=== PATIENT | male | born 1950 | race Caucasian/White ===

== ENCOUNTER 2017-07-03 11:29 | Inpatient (IN) | payer OTHER ==
--- NOTE | 2017-07-03 11:57 | ED ---
General Adult HPI - General Chief complaint: Recheck/Abnormal Lab/Rx Stated complaint: Kidney problems Time Seen by Provider: 07/03/17 11:40 Source: patient, RN notes reviewed, old records reviewed Mode of arrival: ambulatory Limitations: no limitations - History of Present Illness Initial comments: Chief complaint and history of present illness this is a 66-year-old male who had lab work done in his doctor's office yesterday he was called today and told to come the emergency room because of changes in his kidney function. Patient states that he was in hospital 1 month ago first time diagnosis for CHF and A. fib. He is on medications for that. The past 2 days he's been taking vitamin D and he states he is actually feeling better. Review of his kidney function from one month ago showed his BUN at that time to be 33 creatinine 1.23 GFR 59. We're trying to obtain lab results done at the doctor's office. lab results are obtained from the doctor's office and it showed BUN of 48 creatinine 3.0 and GFR 21. these are significant changes compared to one month ago. - Related Data Previous Rx's Medication Instructions Recorded Amiodarone [Cordarone] 400 mg PO BID #120 tab 06/06/17 Apixaban [Eliquis] 5 mg PO BID #60 tab 06/06/17 Digoxin [Lanoxin] 125 mcg PO DAILY #30 tab 06/06/17 Furosemide [Lasix] 40 mg PO BID@0900,1600 #60 tab 06/06/17 Lisinopril [Zestril] 2.5 mg PO DAILY #30 tab 06/06/17 Melatonin 3 mg PO HS PRN tablet 06/06/17 Metoprolol Tartrate [Lopressor] 25 mg PO TID #90 tab 06/06/17 Spironolactone [Aldactone] 25 mg PO DAILY #30 tab 06/06/17 Allergies Allergy/AdvReac Type Severity Reaction Status Date / Time No Known Allergies Allergy Verified 07/03/17 12:12 Review of Systems ROS Statement: Those systems with pertinent positive or pertinent negative responses have been documented in the HPI. review of systems no headache or visual acuity changes states he generally feels weak for the past month after being diagnosed with CHF and A. fib. Denying any chest pain no palpitations no significant shortness of breath denies any peripheral edema. No neuro deficits. No abdominal pain no nausea no vomiting no diarrhea. All systems were reviewed. Past medical problems recently diagnosed with A. fib and CHF. With appropriate medications to treat thatNow being taken. Also diagnosis of having a low vitamin D, has taken vitamin D for the past 2 days and states he is actually feeling better. Patient denies any surgical history. Family history significant for father with colon cancer. He states she's never had colonoscopy but he and his physician are planning to have one. Patient's mother had sinus cancer. Patient denies ALLERGIES denies smoking denies drinking. Denies being exposed to any harmful chemicals at work. ROS Other: All systems not noted in ROS Statement are negative. Past Medical History Past Medical History: Atrial Fibrillation, Heart Failure History of Any Multi-Drug Resistant Organisms: None Reported Past Surgical History: No Surgical Hx Reported Past Anesthesia/Blood Transfusion Reactions: No Reported Reaction Past Psychological History: No Psychological Hx Reported Smoking Status: Never smoker Past Alcohol Use History: None Reported Past Drug Use History: None Reported - Past Family History Father Family Medical History: Unable to Obtain Mother Family Medical History: Unable to Obtain General Exam - General Exam Comments Initial Comments: General: The patient is awake and alert, told to come in emergency room because of changes in his kidney function. No new complaints, generally fatigued for the past month after being diagnosed with A. fib and CHF.in no distress, and does not appear acutely ill. vital signs shows temperature 97.8 pulse 70 over respiratory rate 20 pulse ox 99% room air blood pressure 107/52 Eye: Pupils are equal, round and reactive to light, extra-ocular movements are intact ; there is normal conjunctiva bilaterally. No signs of icterus. Ears, nose, mouth and throat: There are moist mucous membranes and no oral lesions. Neck: The neck is supple, there is no tenderness , 9 tear cervical lymphadenopathy, thyroid not enlarged. Cardiovascular: There is a regular rate and rhythm. No murmur, rub or gallop is appreciated. Respiratory: Lungs are clear to auscultation, respirations are non-labored, breath sounds are equal. No wheezes, stridor, rales, or rhonchi. Gastrointestinal: Soft, non-distended, non-tender abdomen without masses or organomegaly noted. There is no rebound or guarding present. No CVA tenderness. Bowel sounds are unremarkable. Back: There is no tenderness to palpation in the midline. There is no obvious deformity. No rashes noted. Musculoskeletal: Normal ROM, no tenderness, mild pitting edema.. There is no calf tenderness or swelling. Sensation intact. Pulses equal bilaterally 2+. Neurological: no numbness no tingling, no focal or lateralizing findings appreciated. Skin: Skin is warm and dry and no rashes or lesions are noted. Psychiatric: Cooperative, appropriate mood & affect, Limitations: no limitations Course Vital Signs 07/03/17 07/03/17 07/03/17 11:32 12:59 14:05 Temperature 97.8 F 97.3 F L Pulse Rate 70 64 62 Respiratory 20 20 Rate Blood Pressure 107/52 101/56 97/62 O2 Sat by Pulse 99 94 L 98 Oximetry EKG Findings - EKG Comments: EKG Findings:: EKG was done and reviewed at 1242 showing atrial fibrillation with controlled rate of 66. Nonspecific ST-T wave changes. Possible digitalis effect. Particular rate 66 QRS duration [address] QT [address] Niño Medical Decision Making - Medical Decision Making Medical decision making; this is a 66-year-old male told to come emergency room because of a significant change in his kidney function. Patient reports she is on no medications for the past month. We obtained the patient's labs drawn yesterday at his doctor's office showing a BUN of 48 creatinine 3.0 and a glomerular filtration rate of 41. Today's labs show a BUN of 55 creatinine 3.19 with a GFR 19. Other labs show white count of 10 hemoglobin 15.9 hematocrit of 48. Potassium 4.9. Glucose 105.BNP 1460, troponin less than 0.012.Urine clean no signs of infection. Chest x-ray was done and reviewed by radiologist his impression is prominent lung volumes suggest COPD. Cardiomediastinal silhouette, pulmonary vascularity and hilar within normal limits. No evidence airspace disease, pneumothorax, or pleural effusion. Patient is rotated. There is improvement in the blunting the costophrenic angles. Impression no acute cardiopulmonary process as reported by Dr. Owen. The patient's case with discussed with his family physician. Patient be admitted diagnosis of acute on chronic renal failure for further evaluation by nephrology. Case discussed Dr. Patel patient be admitted to his service with consultation from nephrology. - Lab Data Result diagrams: 07/03/17 12:12 07/03/17 12:12 Lab Results 07/03/17 07/03/17 07/03/17 Range/Units 12:12 12:12 12:12 WBC 10.2 (3.8-10.6) k/uL RBC 5.46 (4.30-5.90) m/uL Hgb 15.9 (13.0-17.5) gm/dL Hct 48.2 (39.0-53.0) % MCV 88.2 D (80.0-100.0) fL MCH 29.2 (25.0-35.0) pg MCHC 33.1 (31.0-37.0) g/dL RDW 13.0 (11.5-15.5) % Plt Count 198 (150-450) k/uL Neutrophils % 74 % Lymphocytes % 14 % Monocytes % 5 % Eosinophils % 5 % Basophils % 1 % Neutrophils # 7.5 (1.3-7.7) k/uL Lymphocytes # 1.4 (1.0-4.8) k/uL Monocytes # 0.6 (0-1.0) k/uL Eosinophils # 0.5 (0-0.7) k/uL Basophils # 0.1 (0-0.2) k/uL Sodium 135 L (137-145) mmol/L Potassium 4.9 (3.5-5.1) mmol/L Chloride 101 (98-107) mmol/L Carbon Dioxide 23 (22-30) mmol/L Anion Gap 11 mmol/L BUN 55 H (9-20) mg/dL Creatinine 3.19 H (0.66-1.25) mg/dL Est GFR (CKD-EPI)AfAm 22 (>60 ml/min/1.73 sqM) Est GFR (CKD-EPI)NonAf 19 (>60 ml/min/1.73 sqM) Glucose 105 H (74-99) mg/dL Calcium 9.3 (8.4-10.2) mg/dL Total Bilirubin 0.6 (0.2-1.3) mg/dL AST 22 (17-59) U/L ALT 31 (21-72) U/L Alkaline Phosphatase 81 (38-126) U/L Total Creatine Kinase 57 (55-170) U/L CK-MB (CK-2) 0.8 (0.0-2.4) ng/mL CK-MB (CK-2) Rel Index 1.4 Troponin I <0.012 (0.000-0.034) ng/mL NT-Pro-B Natriuret Pep pg/mL Total Protein 6.6 (6.3-8.2) g/dL Albumin 3.8 (3.5-5.0) g/dL Urine Color Urine Appearance (Clear) Urine pH (5.0-8.0) Ur Specific [place] (1.001-1.035) Urine Protein (Negative) Urine Glucose (UA) (Negative) Urine Ketones (Negative) Urine Blood (Negative) Urine Nitrite (Negative) Urine Bilirubin (Negative) Urine Urobilinogen (<2.0) mg/dL Ur Leukocyte Esterase (Negative) 07/03/17 07/03/17 Range/Units 12:12 13:04 WBC (3.8-10.6) k/uL RBC (4.30-5.90) m/uL Hgb (13.0-17.5) gm/dL Hct (39.0-53.0) % MCV (80.0-100.0) fL MCH (25.0-35.0) pg MCHC (31.0-37.0) g/dL RDW (11.5-15.5) % Plt Count (150-450) k/uL Neutrophils % % Lymphocytes % % Monocytes % % Eosinophils % % Basophils % % Neutrophils # (1.3-7.7) k/uL Lymphocytes # (1.0-4.8) k/uL Monocytes # (0-1.0) k/uL Eosinophils # (0-0.7) k/uL Basophils # (0-0.2) k/uL Sodium (137-145) mmol/L Potassium (3.5-5.1) mmol/L Chloride (98-107) mmol/L Carbon Dioxide (22-30) mmol/L Anion Gap mmol/L BUN (9-20) mg/dL Creatinine (0.66-1.25) mg/dL Est GFR (CKD-EPI)AfAm (>60 ml/min/1.73 sqM) Est GFR (CKD-EPI)NonAf (>60 ml/min/1.73 sqM) Glucose (74-99) mg/dL Calcium (8.4-10.2) mg/dL Total Bilirubin (0.2-1.3) mg/dL AST (17-59) U/L ALT (21-72) U/L Alkaline Phosphatase (38-126) U/L Total Creatine Kinase (55-170) U/L CK-MB (CK-2) (0.0-2.4) ng/mL CK-MB (CK-2) Rel Index Troponin I (0.000-0.034) ng/mL NT-Pro-B Natriuret Pep 1460 pg/mL Total Protein (6.3-8.2) g/dL Albumin (3.5-5.0) g/dL Urine Color Yellow Urine Appearance Clear (Clear) Urine pH 5.0 (5.0-8.0) Ur Specific [place] 1.009 (1.001-1.035) Urine Protein Negative (Negative) Urine Glucose (UA) Negative (Negative) Urine Ketones Negative (Negative) Urine Blood Negative (Negative) Urine Nitrite Negative (Negative) Urine Bilirubin Negative (Negative) Urine Urobilinogen <2.0 (<2.0) mg/dL Ur Leukocyte Esterase Negative (Negative) Disposition Clinical Impression: Acute on chronic kidney failure Disposition: ADMITTED IP TO THIS [facility] Condition: Serious Referrals: Herman Doss MD [Primary Care Provider] - 1-2 days
[2017-07-03 12:36] LABS: Basophils # (A) 0.1 k/uL (0-0.2); Basophils % (A) 1 %; Eosinophils # (A) 0.5 k/uL (0-0.7); Eosinophils % (A) 5 %; HCT 48.2 % (39.0-53.0); HGB 15.9 gm/dL (13.0-17.5); Lymphocytes # (A) 1.4 k/uL (1.0-4.8); Lymphocytes % (A) 14 %; MCH 29.2 pg (25.0-35.0); MCHC 33.1 g/dL (31.0-37.0); Mean Platelet Volume 8.2; Monocytes # (A) 0.6 k/uL (0-1.0); Monocytes % (A) 5 %; Neutrophils # (A) 7.5 k/uL (1.3-7.7); Neutrophils % (A) 74 %; Platelet Count 198 k/uL (150-450); RBC 5.46 m/uL (4.30-5.90); WBC 10.2 k/uL (3.8-10.6)
[2017-07-03 12:38] LABS: MCV 88.2 fL (80.0-100.0)
--- NOTE | 2017-07-03 12:38 | XR ---
EXAMINATION TYPE: XR chest 2V DATE OF EXAM: 07/03/2017 COMPARISON: Prior chest x-ray 06/04/2017 HISTORY: Weakness, history of atrial fibrillation, abnormal laboratory test TECHNIQUE: Frontal and lateral views of the chest are obtained. FINDINGS: Prominent lung volumes suggest COPD. Cardiomediastinal silhouette, pulmonary vascularity a nd gi are within normal limits. No evident airspace disease, pneumothorax, or pleural effusion. Pat ient is rotated. There is improvement in the blunting the costophrenic angles. IMPRESSION: No acute cardiopulmonary process.
[2017-07-03 12:42] LABS: Albumin 3.8 g/dL (3.5-5.0); Calcium 9.3 mg/dL (8.4-10.2); Potassium 4.9 mmol/L (3.5-5.1); Total Bilirubin 0.6 mg/dL (0.2-1.3); Total Protein 6.6 g/dL (6.3-8.2)
[2017-07-03 12:54] LABS: Creatine Kinase 57 U/L (55-170)
[2017-07-03 13:07] LABS: Creatine Kinase MB 0.8 ng/mL (0.0-2.4); Troponin I <0.012 ng/mL (0.000-0.034)
[2017-07-03 13:27] LABS: Appearance,Urine Clear (Clear); Bilirubin,Urine Negative (Negative); Blood,Urine Negative (Negative); Color,Urine Yellow; Glucose,Urine (UA) Negative (Negative); Ketones,Urine Negative (Negative); Leukocyte Esterase,Urine Negative (Negative); Nitrite,Urine Negative (Negative); Protein,Urine Negative (Negative); Specific Gravity,Urine 1.009 (1.001-1.035); Urobilinogen,Urine <2.0 mg/dL (<2.0)
[2017-07-03] MEDS ORDERED: NALOXONE 0.4 MG/ML 1 ML VIAL IV PRN (14:30)
[2017-07-03] MEDS ORDERED: ACETAMINOPHEN TAB 325 MG TAB PO PRN (14:30)
[2017-07-03] MEDS: SODIUM CHLORIDE 0.9% 1,000 ML IV SCH (15:43)
[2017-07-03] MEDS ORDERED: MELATONIN 3 MG TABLET PO PRN (17:35)
[2017-07-03] MEDS: METOPROLOL TARTRATE 25 MG TAB PO SCH (22:07)
[2017-07-03] MEDS: AMIODARONE 200 MG TAB PO SCH (22:07)
[2017-07-03] MEDS: APIXABAN 5 MG TAB PO SCH (22:08)
--- NOTE | 2017-07-04 03:57 | HP ---
HISTORY AND PHYSICAL DATE OF SERVICE: 07/03/2017 CHIEF COMPLAINTS: Renal failure. HISTORY OF PRESENT ILLNESS: This 66-year-old gentleman with a past medical history of multiple history atrial ablation CHF, being followed by Dr. Doss in the outpatient setting also had some lab work done at doctor's office and creatinine was noted to be elevated and the patient initially had CHF and atrial ablation and was taking medication for that. There is no history of fever, rigors. No history of headache or loss of consciousness. The patient is complaining of dehydration and some weakness also. The creatinine on admission was noted to be 3.19. There is no history of fever, rigors or chills. PAST MEDICAL HISTORY: History of CHF, history of atrial fibrillation. MEDICATIONS PRIOR TO ADMISSION: Include: 1. Cordarone 20 mg b.i.d. 2. Aldactone 25 mg daily. 3. Lopressor 25 mg daily. 4. Melatonin 3 mg q.h.s. 5. Zestril 2.5 mg daily. 6. Lasix 40 mg p.o. b.i.d. 7. Lanoxin 125 mcg. 8. Eliquis 5 mg p.o. b.i.d. ALLERGIES: None. FAMILY HISTORY: No history of heart disease or strokes in family. SOCIAL HISTORY: No history of smoking. No history of alcohol intake. REVIEW OF SYSTEMS: ENT: No diminished hearing or vision. CARDIOVASCULAR: As mentioned earlier. Respiration: As mentioned earlier. GI: As mentioned earlier. : As mentioned earlier. Nervous system: No numbness, weakness. Allergy/Immunology: No asthma or hayfever. Musculoskeletal as mentioned earlier. Hematology/Oncology: No history of anemia. Endocrine: No history of diabetes or hypothyroidism. Constitutional: As mentioned earlier. Dermatology negative. Rheumatology negative. Psychiatric mentioned earlier. PHYSICAL EXAMINATION: The patient is alert and oriented x3. Pulse 90. Blood pressure 115/69, respiration 18, temperature 97.4, pulse ox 100% on room air. HEENT: Oral mucosa dry. Neck is no jugular venous distention. No carotid bruit. No lymph nodes enlargement. Cardiovascular system: S1, S2. No S3, no S4. Respiratory: Breath sounds diminished in the bases. No rhonchi. No crackles. Abdomen is soft, nontender. No mass palpable. Legs: No edema and no swelling. NERVOUS SYSTEM: Higher functions as mentioned earlier. Moves all four limbs. Lymphatics: No lymph nodes palpable in the neck , axillae or groin. Skin no ulcer, rashes or bleeding. LAB DATA: WBC 10.9, hemoglobin 15, sodium 134, creatinine 2.1. ASSESSMENT: 1. Acute on chronic renal failure. Possible prerenal factors with dehydration, acute tubular necrosis. 2. Hyponatremia. 3. History of congestive heart failure. 4. History of atrial fibrillation. RECOMMENDATIONS AND DISCUSSION: In this 66-year-old gentleman who presented with multiple complex medical issues, we will monitor the patient closely. Continue the current management and continue symptomatic treatment. We will initiate IV fluids cautiously and I would also recommend hold off the Lasix and Aldactone as well. Otherwise, rest of the medications may be continued and dig level will be checked and I would also recommend Cardiology and Nephrology consultations also. Guarded prognosis because of multiple complex medical issues and further recommendations to follow. Copy of dictation being forwarded to Dr. Doss who is the primary physician. SARIAH / RASHEEDN: [id number] / MEDINA
[2017-07-04] MEDS: SODIUM CHLORIDE 0.9% 1,000 ML IV SCH ×2 (06:10→14:57)
[2017-07-04] MEDS: AMIODARONE 200 MG TAB PO SCH ×2 (08:34→19:54)
[2017-07-04] MEDS: METOPROLOL TARTRATE 25 MG TAB PO SCH ×3 (08:35→23:18)
[2017-07-04] MEDS: APIXABAN 5 MG TAB PO SCH ×2 (08:35→19:54)
[2017-07-04 09:41] LABS: Basophils # (A) 0.1 k/uL (0-0.2); Basophils % (A) 1 %; Eosinophils # (A) 0.6 k/uL (0-0.7); Eosinophils % (A) 7 %; HCT 47.3 % (39.0-53.0); HGB 15.5 gm/dL (13.0-17.5); Lymphocytes # (A) 1.7 k/uL (1.0-4.8); Lymphocytes % (A) 19 %; MCH 29.4 pg (25.0-35.0); MCHC 32.8 g/dL (31.0-37.0); MCV 89.6 fL (80.0-100.0); Mean Platelet Volume 8.3; Monocytes # (A) 0.5 k/uL (0-1.0); Monocytes % (A) 6 %; Neutrophils # (A) 5.7 k/uL (1.3-7.7); Neutrophils % (A) 65 %; Platelet Count 168 k/uL (150-450); RBC 5.28 m/uL (4.30-5.90); RDW 12.9 % (11.5-15.5); WBC 8.8 k/uL (3.8-10.6)
[2017-07-04 10:06] LABS: Albumin 3.4 g/dL (3.5-5.0); Calcium 8.8 mg/dL (8.4-10.2); Magnesium 2.3 mg/dL (1.6-2.3); Potassium 4.7 mmol/L (3.5-5.1); Total Bilirubin 0.6 mg/dL (0.2-1.3); Total Protein 6.1 g/dL (6.3-8.2)
[2017-07-04] MEDS: DIGOXIN 125 MCG TAB PO SCH (10:52)
[2017-07-04 11:20] LABS: Digoxin 1.6 ng/mL
--- NOTE | 2017-07-04 16:31 | P.CRDCN ---
History of Present Illness Consult date: 07/04/17 History of present illness: Mr. Rodriguez is a pleasant 66-year-old male past medical history significant for systolic heart failure and persistent atrial fibrillation on termite technician anticoagulation. These are both new diagnoses for this patient early May. He apparently presented to the hospital in May in atrial fibrillation with rapid ventricular response and was found to have a decreased systolic function with an ejection fraction 20-25% with moderate LVH, mild aortic valve sclerosis, mild TR, mild MR and moderate pulmonary hypertension with RVSP 48.63 mmHg. He also underwent cardiac catheterization at that time which revealed normal coronary arteries. At that time he was started on amiodarone, Eliquis, Lipitor, digoxin, Lasix, lisinopril, Aldactone, and metoprolol. He went to his PCP for post-hospital follow up and blood work revealed an elevated creatinine of 3.0. He was admitted to the hospital for further evaluation with cardiology and nephrology. Initial creatinine on admission 3.19, repeat today 2.05. Potassium 4.7, magnesium 2.3. Lasix, lisinopril and aldactone have been held. EKG on arrival reveals atrial fibrillation with controlled ventricular response with digitalis effect. Chest x-ray is negative for acute cardiopulmonary process. Review of Systems At the time of exam: CONSTITUTIONAL: Denies fever. Denies chills. EYES: Denies blurred vision. Denies vision changes. Denies eye pain. EARS, NOSE, MOUTH & THROAT: Denies headache. Denies sore throat. Denies ear pain. CARDIOVASCULAR: Denies chest pain. Denies shortness of breath. Denies orthopnea. Denies PND. Denies palpitations. RESPIRATORY: Denies cough. GASTROINTESTINAL: Denies abdominal pain. Denies diarrhea. Denies constipation. Denies nausea. Denies vomiting. MUSCULOSKELETAL: Denies myalgias. INTEGUMENTARY: Denies pruitis. Denies rash. NEUROLOGIC: Denies numbness. Denies tingling. Denies weakness. PSYCHIATRIC: Denies anxiety. Denies depression. ENDOCRINE: Denies fatigue. Denies weight change. Denies polydipsia. Denies polyurina. GENITOURINARY: Denies burning, hematuria or urgency with micturation. HEMATOLOGIC: Denies history of anemia. Denies bleeding. Past Medical History Past Medical History: Atrial Fibrillation, Heart Failure History of Any Multi-Drug Resistant Organisms: None Reported Past Surgical History: No Surgical Hx Reported Past Anesthesia/Blood Transfusion Reactions: No Reported Reaction Past Psychological History: No Psychological Hx Reported Smoking Status: Never smoker Past Alcohol Use History: None Reported Past Drug Use History: None Reported - Past Family History Father Family Medical History: Unable to Obtain Mother Family Medical History: Unable to Obtain Medications and Allergies Home Medications Medication Instructions Recorded Confirmed Type Apixaban [Eliquis] 5 mg PO BID #60 tab 06/06/17 07/03/17 Rx Digoxin [Lanoxin] 125 mcg PO DAILY #30 tab 06/06/17 07/03/17 Rx Furosemide [Lasix] 40 mg PO BID@0900,1600 #60 tab 06/06/17 07/03/17 Rx Lisinopril [Zestril] 2.5 mg PO DAILY #30 tab 06/06/17 07/03/17 Rx Melatonin 3 mg PO HS PRN tablet 06/06/17 07/03/17 Rx Metoprolol Tartrate [Lopressor] 25 mg PO TID #90 tab 06/06/17 07/03/17 Rx Spironolactone [Aldactone] 25 mg PO DAILY #30 tab 06/06/17 07/03/17 Rx Amiodarone [Cordarone] 200 mg PO BID 07/03/17 07/03/17 History Allergies Allergy/AdvReac Type Severity Reaction Status Date / Time No Known Allergies Allergy Verified 07/03/17 12:12 Physical Exam Vitals: Vital Signs Temp Pulse Pulse Resp BP Pulse Ox 07/04/17 15:59 18 07/04/17 08:46 18 07/04/17 05:57 96.7 F L 66 18 103/55 92 L 07/03/17 22:06 97.2 F L 80 18 112/62 Intake and Output 07/04/17 07/04/17 07/04/17 06:59 14:59 22:59 Intake Total 500 Balance 500 Intake: Oral 500 Other: Voiding Method Toilet Toilet Toilet # Voids 1 Weight 95.254 kg Patient Weight 07/05/17 06:59 Weight 95.254 kg Blood pressure 103/55 heart rate 66 afebrile maintaining oxygen saturation on room air GENERAL: This is a 66-year-old male in no apparent distress at the time of my examination. HEENT: Head is atraumatic, normocephalic. Pupils are equal, round. Sclerae anicteric. Conjunctivae are clear. Mucous membranes of the mouth are moist. Neck is supple. There is no jugular venous distention. No carotid bruit is heard. LUNGS: Clear to auscultation no wheezes, rales or rhonchi. No chest wall tenderness is noted on palpation or with deep breathing. Diminished bilaterally. HEART: Irregular rate and rhythm with systolic ejection murmur at the base, no rubs or gallops. S1 and S2 heard. ABDOMEN: Soft, nontender. Bowel sounds are heard. No organomegaly noted. EXTREMITIES: No evidence of peripheral edema and no calf tenderness noted. VASCULAR: Radial and dorsalis pedis pulses palpated, no evidence of clubbing. NEUROLOGIC: Patient is awake, alert and oriented x3. Results 07/04/17 08:35 07/04/17 08:35 Cardiac Enzymes 07/04/17 Range/Units 08:35 AST 23 (17-59) U/L CBC 07/04/17 Range/Units 08:35 WBC 8.8 (3.8-10.6) k/uL RBC 5.28 (4.30-5.90) m/uL Hgb 15.5 (13.0-17.5) gm/dL Hct 47.3 (39.0-53.0) % Plt Count 168 (150-450) k/uL Comprehensive Metabolic Panel 07/04/17 Range/Units 08:35 Sodium 140 (137-145) mmol/L Potassium 4.7 (3.5-5.1) mmol/L Chloride 106 (98-107) mmol/L Carbon Dioxide 24 (22-30) mmol/L BUN 44 H (9-20) mg/dL Creatinine 2.05 H (0.66-1.25) mg/dL Glucose 122 H (74-99) mg/dL Calcium 8.8 (8.4-10.2) mg/dL AST 23 (17-59) U/L ALT 28 (21-72) U/L Alkaline Phosphatase 80 (38-126) U/L Total Protein 6.1 L (6.3-8.2) g/dL Albumin 3.4 L (3.5-5.0) g/dL Current Medications Generic Name Dose Route Start Last Admin Trade Name Freq PRN Reason Stop Dose Admin Acetaminophen 650 mg 07/03/17 14:30 Tylenol Tab PO Q6HR PRN Mild Pain or Fever > 100.5 Amiodarone HCl 200 mg 07/03/17 21:00 07/04/17 08:34 Cordarone PO 200 mg BID LUPIS Administration Apixaban 5 mg 07/03/17 21:00 07/04/17 08:35 Eliquis PO 5 mg BID LUPIS Administration Digoxin 125 mcg 07/04/17 09:00 07/04/17 10:52 Lanoxin PO 125 mcg DAILY LUPIS Administration Sodium Chloride 1,000 mls @ 80 mls/hr 07/03/17 14:30 07/04/17 14:57 Saline 0.9% IV 80 mls/hr .[id number] LUPIS Administration Melatonin 3 mg 07/03/17 17:35 Melatonin PO HS PRN Insomnia Metoprolol Tartrate 25 mg 07/03/17 22:00 07/04/17 15:04 Lopressor PO 25 mg TID LUPIS Administration Naloxone HCl 0.2 mg 07/03/17 14:30 Narcan IV Q2M PRN Opioid Reversal Intake and Output 07/04/17 07/04/17 07/04/17 06:59 14:59 22:59 Intake Total 500 Balance 500 Intake: Oral 500 Other: Voiding Method Toilet Toilet Toilet # Voids 1 Weight 95.254 kg Patient Weight 07/05/17 06:59 Weight 95.254 kg 07/04/17 08:35 07/04/17 08:35 Assessment and Plan Assessment: ASSESSMENT 1. History of systolic heart failure, currently euvolemic 2. Chronic persistent atrial fibrillation on termite technician anticoagulation with controlled ventricular response. 3. Acute renal failure PLAN Agree with holding of lasix, aldactone and lisinopril. Repeat 2D echocardiogram and doppler study to assess cardiac structure and function. Continue to check BMP daily. Further recommendations to follow. Nurse Practitioner note has been reviewed, I agree with a documented findings and plan of care. Patient was seen and examined.
--- NOTE | 2017-07-04 17:01 | CONS ---
CONSULTATION DATE OF CONSULTATION: 07/04/2017. REASON FOR CONSULT: Renal failure. HISTORY OF PRESENT ILLNESS: The patient is a 66-year-old male who was admitted to the hospital with significant change in his renal function, as outpatient. He was recently hospitalized for CHF and acute kidney injury which was mainly cardiorenal. Patient was diuresed and discharged home. His creatinine was about 1.2 mg/dL on 06/06/2017. On this admission, he was up to 3.19 with a BUN of 55. The patient's blood pressure was on the lower side with systolic about 103-112 mmHg. Currently, he is maintained on IV fluids at 80 mL an hour. He is not on any diuretics. At home, patient was on 40 mg of Lasix b.i.d. along with Zestril 2.5 mg daily. The patient denies use of any nonsteroidal anti- inflammatory agents. He does have cardiomyopathy with ejection fraction of about 20%. PAST MEDICAL HISTORY: Cardiomyopathy. History of hypertension, atrial fibrillation. SOCIAL HISTORY: Negative for smoking, drug abuse or alcohol abuse. REVIEW OF SYSTEMS: As per HPI. Other systems negative. MEDICATIONS: Medications at home include Lopressor Aldactone, Lasix, Zestril, Lanoxin, Eliquis, Cordarone. ALLERGIES: None. PHYSICAL EXAMINATION: On examination patient is currently comfortable, awake. He is not in any acute distress. He states he is feeling better. Blood pressure is 103/55, heart rate 66 per minute. He is afebrile. Examination of the heart S1, S2. Examination of the lungs bilateral breath sounds are heard. Abdomen is soft, nontender. Examination of the lower extremities shows no significant edema. [employer] exam is grossly intact. LAB: Show sodium 140, potassium 4.7, hemoglobin 15.5, serum creatinine 2.05. UA is negative for blood, protein, cells. ASSESSMENT: 1. Acute kidney injury, prerenal, currently maintained on IV fluids. I will be very cautious with aggressive IV hydration. Given his significantly low ejection fraction, we will discontinue the IV fluids most likely tomorrow. 2. Cardiomyopathy with ejection fraction of about 20%. 3. Recent hospitalization for congestive heart failure, acute on top of chronic, mainly systolic. 4. Chronic kidney disease and NKF stage III secondary to nephrosclerosis with completely benign UA. Serum creatinine about 1.2 on 06/06/2017. 5. Atrial fibrillation, maintained on anticoagulation with controlled ventricular response. 6. Status post cardiac catheterization done recently on last admission which was on 06/05/2017, which did not show any significant coronary artery disease. PLAN: Cautious IV hydration. Repeat labs in a.m. Hold off on ANGELES inhibitors for now. Thank you for this consultation. We will continue to follow the patient with you during his hospitalization. MMODL / IJN: [id number] /
--- NOTE | 2017-07-04 19:52 | P.PN ---
Subjective Progress Note Date: 07/04/17 Progress note being dictated for Dr. Singh. Interval history: This a 66-year-old gentleman admitted with acute on chronic renal failure, hyponatremia, dehydration, hypotension and multiple other medical issues including cardiomyopathy with EF of 20%. Evaluated by both nephrology and cardiology with recommendations noted. Maintained on gentle IV fluid hydration with Aldactone and Lasix continuing to be held. Sodium, Renal function improving. Systolic blood pressure in the low 100s. Objective - Vital Signs Vital signs: Vital Signs Temp 97.2 F L 07/04/17 15:00 Pulse 70 07/04/17 15:00 Resp 18 07/04/17 15:59 BP 108/66 07/04/17 15:00 Pulse Ox 96 07/04/17 15:00 Intake & Output 07/04/17 07/04/17 07/05/17 06:59 18:59 06:59 Intake Total 1180 Balance 1180 Weight 95.254 kg Intake: Oral 1180 Other: Voiding Method Toilet Toilet # Voids 1 3 - Exam PHYSICAL EXAM: VITAL SIGNS: As above GENERAL: Sitting up in bed, no acute distress HEENT: Conjunctivae normal. eyes normal. Oral mucosa moist NECK: No JVD. No thyroid enlargement. No LNs CARDIOVASCULAR: S1, S2, Irregular. Systolic murmur RESPIRATION: Breath sounds diminished in the bases. No rhonchi or crackles. No bronchial breathing. ABDOMEN: Soft, nontender . No guarding. no masses palpable.Bowel sounds heard. LEGS: No edema. no swelling PSYCHIATRY: Alert and oriented -3, mood and affect normal. NERVOUS SYSTEM: Cranial N 2-12 grossly normal. Moves all 4 limbs. Diffuse weakness No focal deficits. Skin: no ulcer no rash Joints: No active swelling. No inflammation. Lymphatic system. No LN neck axilla or groin. - Labs CBC & Chem 7: 07/04/17 08:35 07/04/17 08:35 Labs: Abnormal Lab Results - Last 24 Hours (Table) 07/04/17 Range/Units 08:35 BUN 44 H (9-20) mg/dL Creatinine 2.05 H (0.66-1.25) mg/dL Glucose 122 H (74-99) mg/dL Total Protein 6.1 L (6.3-8.2) g/dL Albumin 3.4 L (3.5-5.0) g/dL Assessment and Plan Assessment: 1. Acute on chronic renal failure, possible prerenal factors with dehydration, acute tubular necrosis 2. Hyponatremia, improving 3. Chronic congestive heart failure, systolic 4. Chronic persistent atrial fibrillation Plan: Continue on current medication regime ,monitoring and symptomatic treatment. Continue holding ANGELES inhibitor, Lasix, Aldactone. Gentle IV fluid hydration. 2-D echo pending. Follow closely with both cardiology and nephrology. Close monitoring of renal function and electrolytes with repeat labs ordered for a.m. Further recommendations to follow. The impression and plan of care has been dictated as directed. : I performed a history and examination of this patient, discussed the same with the dictator. I agree with the dictator's note ,documented as a scribe. Any additional findings or plans will be noted.
[2017-07-05] MEDS: SODIUM CHLORIDE 0.9% 1,000 ML IV SCH (06:33)
[2017-07-05] MEDS: APIXABAN 5 MG TAB PO SCH ×2 (09:03→20:27)
[2017-07-05] MEDS: METOPROLOL TARTRATE 25 MG TAB PO SCH ×3 (09:03→20:27)
[2017-07-05] MEDS: DIGOXIN 125 MCG TAB PO SCH (09:03)
[2017-07-05] MEDS: AMIODARONE 200 MG TAB PO SCH ×2 (09:03→20:27)
[2017-07-05 09:26] LABS: Basophils # (A) 0.1 k/uL (0-0.2); Basophils % (A) 1 %; Eosinophils # (A) 0.6 k/uL (0-0.7); Eosinophils % (A) 7 %; HGB 15.9 gm/dL (13.0-17.5); Lymphocytes # (A) 1.4 k/uL (1.0-4.8); Lymphocytes % (A) 18 %; MCH 30.7 pg (25.0-35.0); MCHC 34.7 g/dL (31.0-37.0); MCV 88.6 fL (80.0-100.0); Mean Platelet Volume 8.2; Monocytes # (A) 0.4 k/uL (0-1.0); Monocytes % (A) 4 %; Neutrophils # (A) 5.5 k/uL (1.3-7.7); Neutrophils % (A) 68 %; Platelet Count 155 k/uL (150-450); RBC 5.19 m/uL (4.30-5.90); RDW 12.9 % (11.5-15.5); WBC 8.1 k/uL (3.8-10.6)
[2017-07-05 09:48] LABS: Calcium 8.8 mg/dL (8.4-10.2); Potassium 4.6 mmol/L (3.5-5.1)
--- NOTE | 2017-07-05 17:44 | PN ---
PROGRESS NOTE The patient is seen for followup for acute kidney injury. His renal function has improved significantly. The patient was maintained on IV fluids which are now discontinued. EXAMINATION: Blood pressure is 121/82, heart rate 61 per minute. Patient is afebrile. Examination of the heart S1, S2. Exam of lungs bilateral breath sounds are heard. Abdomen is soft, nontender. Exam of the lower extremities shows no evidence of edema. LABS: Show sodium 140, potassium 4.6, BUN 20, serum creatinine 1.24, hemoglobin 15.9 g/dL. ASSESSMENT: 1. Acute kidney injury, prerenal, currently significantly improved with IV hydration and continue off of IV fluids. 2. Chronic kidney disease NKF stage III secondary to nephrosclerosis with . Renal function at baseline with baseline creatinine about 1.2. 3. Atrial fibrillation with controlled ventricular response. 4. Coagulation. 5. Status post cardiac catheterization on 06/05/2017, which has not revealed any significant coronary artery disease. 6. Cardiomyopathy with ejection fraction of 20%. PLAN: Continue off of IV fluids. The patient will need to be monitored closely as outpatient for reinitiation for restarting diuretics. Blood pressure remains low. Therefore, I would hold off on the ANGELES inhibitors for now. MMODL / IJN: [id number] /
--- NOTE | 2017-07-05 18:47 | P.PN ---
Subjective Progress Note Date: 07/05/17 This 66-year-old gentleman was recently in the hospital with acute systolic heart failure and atrial fibrillation with a rapid ventricular response. Patient was treated with a combination of diuretics including Lasix and Aldactone. Patient had outpatient lab test which showed a creatinine of 3. It appears that patient got dehydrated. He is admitted to the hospital for hydration. His creatinine has improved to 1.2. His repeat echocardiogram showed improved LV function with an ejection fraction of 45%. He still in atrial fibrillation with controlled ventricular response. Probably could be discharged home on small dose of diuretic in the form of Lasix 20 mg. Rest of the medication be continued. Follow-up in the office in one week. We have been planning for possible cardioversion. Objective - Vital Signs Vital signs: Vital Signs Temp 97.0 F L 07/05/17 15:00 Pulse 60 07/05/17 16:00 Resp 16 07/05/17 16:00 BP 113/55 07/05/17 15:00 Pulse Ox 98 07/05/17 15:00 Intake & Output 07/04/17 07/05/17 07/05/17 18:59 06:59 18:59 Intake Total 1180 240 740 Balance 1180 240 740 Weight 95.254 kg Intake: Oral 1180 240 740 Other: Voiding Method Toilet Toilet Toilet # Voids 3 1 2 - Exam GENERAL EXAM: Patient is alert and oriented and doesn't appear to be in any acute distress HEENT: Normocephalic. Normal reaction of pupils, equal size, normal range of extraocular motion. No erythema or exudates in the throat. NECK: No masses, no nuchal rigidity. CHEST: No chest wall deformity. LUNGS: Equal air entry with no crackles or wheeze. HEART: Irregular heart sounds ABDOMEN: No hepatosplenomegaly, normal bowel sounds, no guarding or rigidity. SKIN: No rashes CENTRAL NERVOUS SYSTEM: No focal deficits. EXTREMITIES: No cyanosis, clubbing or edema. - Labs CBC & Chem 7: 07/05/17 08:41 07/05/17 08:41 Labs: Abnormal Lab Results - Last 24 Hours (Table) 07/05/17 Range/Units 08:41 Chloride 109 H (98-107) mmol/L Carbon Dioxide 21 L (22-30) mmol/L BUN 26 H (9-20) mg/dL Glucose 120 H (74-99) mg/dL Assessment and Plan (1) Atrial fibrillation with controlled ventricular rate Current Visit: Yes Status: Acute Code(s): I48.91 - UNSPECIFIED ATRIAL FIBRILLATION SNOMED Code(s): 27681313 (2) Acute on chronic kidney failure Current Visit: Yes Status: Acute Code(s): N17.9 - ACUTE KIDNEY FAILURE, UNSPECIFIED; N18.9 - CHRONIC KIDNEY DISEASE, UNSPECIFIED SNOMED Code(s): 093833177 (3) Congestive heart failure Current Visit: No Status: Acute Code(s): I50.9 - HEART FAILURE, UNSPECIFIED SNOMED Code(s): 15109578 (4) Nonischemic cardiomyopathy Current Visit: Yes Status: Acute Code(s): I42.8 - OTHER CARDIOMYOPATHIES SNOMED Code(s): 81848086 Plan: Patient is feeling better. His creatinine has improved. Echocardiogram showed improved LV function. Ejection fraction of 45%. Patient could be discharged home in a.m. Follow-up in the office in one week. Possible cardioversion in the near future. Patient may be resumed on small dose of diuretics in the form of Lasix 20 mg.
--- NOTE | 2017-07-05 23:53 | PN ---
PROGRESS NOTE DATE OF SERVICE: 07/05/2017 PRESENTING COMPLAINT: Tired. INTERVAL HISTORY: This patient was admitted with acute renal failure. He did better after holding off diuretics, ANGELES inhibitor, getting hydrated. Tolerating a diet. Somewhat tired. Has been out of bed. Not short of breath. No chest pain. REVIEW OF SYSTEMS: Done for constitutional, cardiovascular, GI, pulmonary; relevant findings as above. CURRENT MEDICATIONS: Reviewed. PHYSICAL EXAMINATION: Temperature 97, pulse 60, respiration 16, blood pressure 113/55, pulse ox 98% on room air. GENERAL APPEARANCE: Sitting up, tired-appearing. EYES: Pupils equal. Conjunctivae normal. HEENT: External appearance of nose and ears normal. Oral cavity normal. NECK: JVD not raised. Mass not palpable. RESPIRATORY: Effort normal. LUNGS: Fair air entry. CARDIOVASCULAR: First and second sounds normal. No edema. ABDOMEN: Soft, non-tender. Liver and spleen not palpable. PSYCHIATRY: Alert and oriented x3. Mood and affect normal. INVESTIGATIONS: White count 8.1, potassium 4.6, BUN 26, creatinine 1.24. ASSESSMENT: 1. Acute renal failure, likely prerenal, from antihypertensive, diuretics. 2. Chronic congestive heart failure from systolic and diastolic dysfunction, ejection fraction around 40%, from underlying hypertensive heart disease. 3. Hypertensive heart disease. 4. Persistent atrial fibrillation. 5. 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 6. Obesity. 7. Secondary pulmonary hypertension secondary to congestive heart failure. PLAN: Patient's IV fluids were discontinued today. Will start the patient on a small dose of Aldactone. Patient encouraged to ambulate. Repeat labs in the morning. Patient to continue on Eliquis. MMODL / IJN: [id number] /
[2017-07-06 07:23] VITALS: RESP 16; TEMP 96.3
[2017-07-06] MEDS: APIXABAN 5 MG TAB PO SCH (08:01)
[2017-07-06] MEDS: AMIODARONE 200 MG TAB PO SCH (08:01)
[2017-07-06] MEDS: DIGOXIN 125 MCG TAB PO SCH (08:01)
[2017-07-06] MEDS: METOPROLOL TARTRATE 25 MG TAB PO SCH (08:02)
[2017-07-06 08:32] LABS: Basophils # (A) 0.2 k/uL (0-0.2); Basophils % (A) 2 %; Eosinophils # (A) 0.7 k/uL (0-0.7); Eosinophils % (A) 8 %; HCT 49.2 % (39.0-53.0); HGB 16.4 gm/dL (13.0-17.5); Lymphocytes # (A) 1.7 k/uL (1.0-4.8); Lymphocytes % (A) 19 %; MCH 29.9 pg (25.0-35.0); MCHC 33.4 g/dL (31.0-37.0); MCV 89.5 fL (80.0-100.0); Mean Platelet Volume 8.3; Monocytes # (A) 0.4 k/uL (0-1.0); Monocytes % (A) 5 %; Neutrophils # (A) 5.7 k/uL (1.3-7.7); Neutrophils % (A) 66 %; Platelet Count 175 k/uL (150-450); RBC 5.49 m/uL (4.30-5.90); WBC 8.7 k/uL (3.8-10.6)
[2017-07-06 08:49] LABS: Calcium 9.4 mg/dL (8.4-10.2); Magnesium 1.9 mg/dL (1.6-2.3)
[2017-07-06] MEDS ORDERED: SPIRONOLACTONE 25 MG TAB PO SCH (09:00)
[2017-07-06] MEDS ORDERED: CHOLECALCIFEROL 1,000 UNIT TAB PO SCH (09:00)
[2017-07-06 09:18] VITALS: BP 96/63; PULSE 78
--- NOTE | 2017-07-06 16:15 | PN ---
PROGRESS NOTE Patient is seen for followup for acute kidney injury which was mainly prerenal. He has received IV fluids, which were discontinued. He is currently doing very well and awaiting to go home. On examination, blood pressure is 96/63, heart rate 78 per minute. He is afebrile. EXAMINATION OF THE HEART: S1, S2. EXAMINATION OF LUNGS: Bilateral breath sounds are heard. ABDOMEN: Soft, non-tender. Examination of lower extremities shows no evidence of edema. Labs show sodium 139, serum creatinine 1.2, potassium 5.0, hemoglobin 16.4 g/dL. ASSESSMENT: 1. Acute kidney injury, prerenal, currently resolved, with creatinine down to 1.2 from 3.19 on initial admission. 2. Status post cardiac catheterization on 06/05/2017 which did not reveal any significant coronary artery disease. 3. Cardiomyopathy; ejection fraction 20%. 4. Atrial fibrillation with controlled ventricular response. 5. Chronic kidney disease, stage III, secondary to nephrosclerosis with baseline creatinine of about 1.2 mg/dL. PLAN: Continue off of IV fluids. The patient will need to be monitored closely for initiation of diuretics and monitoring of renal function while on diuretics. MMODL / IJN: [id number] /
--- NOTE | 2017-07-07 19:31 | DS ---
DISCHARGE SUMMARY DATE OF ADMISSION: 07/03/2017. DATE OF DISCHARGE: 07/06/2017 FINAL DIAGNOSES: 1. Acute renal failure, likely prerenal from angiotensin-converting enzyme inhibitor, diuretics. 2. Chronic congestive heart failure from systolic and diastolic dysfunction, ejection fraction 40% from underlying hypertensive heart disease. 3. Hypertensive heart disease. 4. Persistent atrial fibrillation. 5. Chronic kidney disease from hypertensive nephrosclerosis stage 3. 6. Obesity. 7. Secondary pulmonary hypertension secondary to congestive heart failure. HOSPITAL COURSE: This patient with known congestive heart failure, presented with acute renal failure. BUN, creatinine on presentation were 55/3.19. By the time of discharge, did drop down to 24/1.22. The patient was put back on a small dose of Aldactone. The patient's Lasix and Zestril were discontinued for right now. The patient doing much better at time of discharge. EXAM: LUNGS: Fair air entry. CARDIOVASCULAR: Heart sounds regular. PSYCH: AO x3. CONSULTATION: Dr. Jacobsen from cardiology, Dr. Galan from nephrology. DISCHARGE MEDICATIONS: 1. Eliquis 5 mg b.i.d. 2. Digoxin 125 mcg p.o. daily. 3. Melatonin 3 mg q.h.s. p.r.n. 4. Lopressor 25 p.o. t.i.d. 5. Vitamin D3 1000 units p.o. daily. 6. Cordarone 200 mg p.o. daily. 7. Aldactone 25 mg p.o. daily. The patient to follow up with his label coder in 1 week, Dr. Doss on 07/12/2017, [facility] in 1 week. Discussion, discharge planning more than 35 minutes. MMODL / IJN: [id number] /
--- NOTE | 2017-07-09 13:13 | ECHOF ---
Referral Reason:repeat to assess for improved LV function MEASUREMENTS -------- HEIGHT: 170.2 cm WEIGHT: 95.3 kg BP: FINDINGS -------- Undetermined rhythm. Limited Study to Re-evaluate LV function. Overall left ventricular systolic function is mild-moderately impaired with, an EF between 40 - 45 %. 5.0mg OF Lumason UTLIZED: 2 OR MORE WALL SEGMENTS NOT VISUALIZED. There is no pericardial effusion. CONCLUSIONS -------- 1. Limited Study to Re-evaluate LV function. 2. Overall left ventricular systolic function is mild-moderately impaired with, an EF between 40 - 45 %. 3. 5.0mg OF Lumason UTLIZED: 2 OR MORE WALL SEGMENTS NOT VISUALIZED. 4. There is no pericardial effusion. CAR SERVICER: Bernadette Gayle RDCS
== END 2017-07-06 15:12 | disposition home or self-care (01) | DRG 683 ==
LOC: EC 11:29 → 4MS4W 14:30
PROVIDERS: ADMIT Hospitalist; ATTEND Hospitalist
DX: N17.0 Acute kidney failure with tubular necrosis (principal); E87.1 Hypo-osmolality and hyponatremia; I13.0 Hypertensive heart and chronic kidney disease with heart failure and stage 1 through stage 4 chronic kidney disease, or unspecified chronic kidney disease; I27.29 Other secondary pulmonary hypertension; I42.8 Other cardiomyopathies; I48.1 Persistent atrial fibrillation; I48.2 Chronic atrial fibrillation; I50.42 Chronic combined systolic (congestive) and diastolic (congestive) heart failure; E86.0 Dehydration; I08.3 Combined rheumatic disorders of mitral, aortic and tricuspid valves; E66.9 Obesity, unspecified; Z68.32 Body mass index [BMI] 32.0-32.9, adult; N18.3 Chronic kidney disease, stage 3 (moderate); Z79.01 Long term (current) use of anticoagulants; Z79.899 Other long term (current) drug therapy
CPT/HCPCS: 36415; 71046; 80048; 80053; 80162; 81003; 82550; 82553; 83735; 83880; 84484; 85025; 93005; 93308; 99285

== ENCOUNTER 2017-07-13 07:04 | Day surgery (SDC) | payer OTHER ==
[2017-07-12 09:59] VITALS: BMI 34.6
[~2017-07-13 07:04] MED LIST: SODIUM CHLORIDE 0.9% 1,000 ML IV SCH
[2017-07-13 07:37] VITALS: TEMP 97.8
[2017-07-13] MEDS ORDERED: LIDOCAINE 1% INJ 10MG/ML (20 ML MDV) ONE (08:50)
[2017-07-13] MEDS ORDERED: PROPOFOL 10 MG/ML 20 ML VIAL IV ONE (08:50)
[2017-07-13 09:08] VITALS: RESP 16
--- NOTE | 2017-07-13 09:10 | P.PCN ---
Date of Procedure: 07/13/17 Preoperative Diagnosis: Persistent atrial fibrillation Postoperative Diagnosis: Successful conversion to sinus rhythm Procedure(s) Performed: Cardioversion Description of Procedure: This is a 66-year-old gentleman who was recently admitted to the hospital with the systolic heart failure and evidence of cardiomyopathy and atrial fibrillation with rapid ventricular response. Patient was treated with medications with control of his CHF and heart rate. Patient is advised to have a cardioversion and brought in for the procedure. Patient has been adequately anticoagulated. Patient was given IV sedation by department of anesthesia. 2 Synchronized shocks of 200 J followed with 300 J were applied with the anterior-posterior paddle placement. Patient converted to sinus rhythm with 300 J shock. Patient tolerated the procedure well. Final impression: #1. Successful cardioversion from atrial fibrillation to sinus rhythm. Plan: Patient will be discharged home, If stable, within next 2-4 hours. Follow-up in the office in one week. Patient will continue current medical therapy.
[2017-07-13] MEDS ORDERED: SODIUM CHLORIDE 0.9% 1,000 ML IV SCH ×2 (09:15)
[2017-07-13 09:44] VITALS: BP 115/72
[2017-07-13 10:13] VITALS: PULSE 65
== END 2017-07-13 10:11 | disposition home or self-care (01) ==
LOC: CATHCVL 07:04
PROVIDERS: ATTEND Internal Medicine Cardiovascular Disease
DX: I48.1 Persistent atrial fibrillation (principal); I50.22 Chronic systolic (congestive) heart failure; I11.0 Hypertensive heart disease with heart failure; I42.0 Dilated cardiomyopathy; Z79.899 Other long term (current) drug therapy; Z79.02 Long term (current) use of antithrombotics/antiplatelets; Z82.49 Family history of ischemic heart disease and other diseases of the circulatory system
CPT/HCPCS: 92960; J2001; J2704; 93005

== ENCOUNTER 2018-04-25 11:08 | Day surgery (SDC) | payer MEDICARE, BC ==
[2018-04-19 10:10] VITALS: BMI 34.9
[~2018-04-25 11:08] MED LIST changes: +HYDROmorphone 0.5 MG/0.5 ML SYRINGE IVP PRN; +LACTATED RINGERS 1,000 ML IV SCH; +LIDOCAINE 1% 20 ML VIAL (10MG/ML) FOR IV START INTRADERMA PRN; -SODIUM CHLORIDE 0.9% 1,000 ML IV SCH
[2018-04-25 11:39] VITALS: RESP 16; TEMP 97.2
[2018-04-25] MEDS ORDERED: PROPOFOL 10 MG/ML 20 ML VIAL IV ONE (12:52)
[2018-04-25] MEDS ORDERED: LIDOCAINE 1% INJ 10MG/ML (20 ML MDV) ONE (12:52)
[2018-04-25 13:29] VITALS: PULSE 58
--- NOTE | 2018-04-25 13:32 | P.PCN ---
Date of Procedure: 04/25/18 Description of Procedure: BRIEF HISTORY: Patient is a pleasant 67-year-old male in his father who presents for his first colonoscopy, and high risk screening. The patient denies any symptoms of change in bowel habits, blood per rectum or melena. He denies any abdominal pain. PROCEDURE PERFORMED: Colonoscopy. PREOPERATIVE DIAGNOSIS: High risk colorectal screening, family history of colon cancer (patient's father). ESTIMATED BLOOD LOSS: Minimal. IV sedation per Anesthesia. PROCEDURE: After informed consent was obtained, the patient, was brought into the endoscopy unit. IV sedation was administered by Anesthesia under continuous monitoring. Digital rectal examination was normal. Initially the Olympus CF- 190 flexible video colonoscope was then inserted in the rectum, gradually advanced into the cecum without any difficulty. Careful examination was performed as the scope was gradually being withdrawn. Ileocecal valve and the appendiceal orifice were visualized and appeared normal. Prep was good. Mucosa of the cecum, ascending colon, transverse colon, descending colon, sigmoid colon , and rectum appeared normal. Retroflexion was performed in the rectum and no lesions were seen, mild internal hemorrhoids were noted. The patient tolerated the procedure well. IMPRESSION: Normal-appearing colon from rectum to cecum . RECOMMENDATIONS: Findings of this examination were discussed with the patient and his sisters. Okay to resume medications. Recommend repeat colonoscopy for high risk screening in 5 years given family history or sooner if signs or symptoms develop.
[2018-04-25 13:46] VITALS: BP 124/85
== END 2018-04-25 14:15 | disposition home or self-care (01) ==
LOC: ORWHC2ENDO 11:08
PROVIDERS: ATTEND Internal Medicine
DX: Z12.11 Encounter for screening for malignant neoplasm of colon (principal); K64.8 Other hemorrhoids; Z80.0 Family history of malignant neoplasm of digestive organs; I48.91 Unspecified atrial fibrillation; I11.0 Hypertensive heart disease with heart failure; I50.9 Heart failure, unspecified; R25.1 Tremor, unspecified; Z79.01 Long term (current) use of anticoagulants; Z79.899 Other long term (current) drug therapy; Z88.8 Allergy status to other drugs, medicaments and biological substances; Z87.448 Personal history of other diseases of urinary system
CPT/HCPCS: J2001; J2704; G0105; 45378

== ENCOUNTER 2019-05-13 14:06 | Emergency (ER) | payer MEDICARE, BC ==
[2019-05-13 14:25] VITALS: TEMP 97.5
--- NOTE | 2019-05-13 15:36 | ED ---
Fall HPI - General Chief Complaint: Fall Stated Complaint: Fall Time Seen by Provider: 05/13/19 14:28 Source: patient, EMS Mode of arrival: EMS - History of Present Illness Initial Comments: Patient is a 68-year-old male, with hx of tremors, presenting to the emergency department, via EMS, after falling at his doctor's office today. Patient was at his doctor's office waiting to get an ECG performed when he stood up, felt dizzy, and fell forward hitting the left side of his forehead. Patient is on eliquis secondary to A. fib. Patient states he did not use consciousness. Patient denies a headache, blurry vision, facial pain, neck pain, back pain, abdominal pain, nausea, vomiting. He denies hip pain or leg pain. He has no other complaints at this time. Patient states for the past few months he has been having dizzy spells. Patient states he has been trying to lose weight and thinks that his blood pressure medication might be too much now. He was going to see his PCP regarding this. He denies chest pain, shortness of breath. Upon arrival to the ER, his vital signs are stable. - Related Data Home Medications Medication Instructions Recorded Confirmed Cholecalciferol [Vitamin D3 (25 1,000 unit PO DAILY 07/05/17 04/19/18 Mcg = 1000 Iu)] Previous Rx's Medication Instructions Recorded Apixaban [Eliquis] 5 mg PO BID #60 tab 06/06/17 Metoprolol Tartrate [Lopressor] 25 mg PO TID #90 tab 06/06/17 Amiodarone [Cordarone] 200 mg PO DAILY #0 07/06/17 Allergies Allergy/AdvReac Type Severity Reaction Status Date / Time furosemide [From Lasix] AdvReac caused Verified 04/25/18 11:23 kidney failure Review of Systems ROS Statement: Those systems with pertinent positive or pertinent negative responses have been documented in the HPI. ROS Other: All systems not noted in ROS Statement are negative. Past Medical History Past Medical History: Atrial Fibrillation, Heart Failure, Hypertension, Renal Disease Additional Past Medical History / Comment(s): past hx. kidney failure related to a medication-much better, follows w/Adama, benign tremors History of Any Multi-Drug Resistant Organisms: None Reported Past Surgical History: No Surgical Hx Reported Additional Past Surgical History / Comment(s): cardioversion Past Anesthesia/Blood Transfusion Reactions: No Reported Reaction Past Psychological History: No Psychological Hx Reported Smoking Status: Never smoker Past Alcohol Use History: None Reported Past Drug Use History: None Reported - Past Family History Father Family Medical History: Unable to Obtain Mother Family Medical History: Unable to Obtain General Exam - General Exam Comments Initial Comments: GENERAL: Well-appearing, well-nourished and in no acute distress. HEAD: Normocephalic. Patient has a small hematoma to the left forehead. No pain to palpation. EYES: Pupils equal round and reactive to light, extraocular movements intact, sclera anicteric, conjunctiva are normal. ENT: TMs normal, nares patent, oropharynx clear without exudates. Moist mucous membr anes. NECK: Normal range of motion, supple without lymphadenopathy or JVD. No pain to palpation. LUNGS: Breath sounds clear to auscultation bilaterally and equal. No wheezes rales or rhonchi. HEART: Regular rate and rhythm without murmurs, rubs or gallops. ABDOMEN: Soft, nontender, normoactive bowel sounds. No guarding, no rebound. No masses appreciated. : Deferred EXTREMITIES: Normal range of motion, no pitting or edema. No clubbing or cyanosis. No pain to palpation. NEUROLOGICAL: Cranial nerves II through XII grossly intact. Normal speech, normal gait. PSYCH: Normal mood, normal affect. SKIN: Warm, Dry, normal turgor, no rashes or lesions noted. Limitations: no limitations Course Vital Signs 05/13/19 05/13/19 05/13/19 14:18 16:00 17:00 Temperature 97.5 F L Pulse Rate 65 61 60 Respiratory 18 18 18 Rate Blood Pressure 119/63 115/60 112/59 O2 Sat by Pulse 98 99 98 Oximetry 05/13/19 18:12 Temperature Pulse Rate Respiratory 20 Rate Blood Pressure O2 Sat by Pulse Oximetry Medical Decision Making - Medical Decision Making Patient is a 68-year-old male presenting after he fell forward at his doctor's office today after standing up and experiencing dizziness. His vital signs are stable. Patient does have a mild hematoma to the left forehead. Patient is on eliquis for A. fib. Rest of exam is unremarkable. EKG is normal. CT of the brain shows no acute hemorrhage. His lab work is unremarkable, his troponin is normal. I discussed these findings with the patient. Patient remained symptom free. Patient is stable for discharge at this time. I did discuss that if he develops headache, blurry vision or any other abnormal symptoms to return to the emergency department for further evaluation. Patient is in agreement this plan of care. Patient will follow up with his PCP. Case discussed with Dr. Perez. - Lab Data Result diagrams: 05/13/19 16:33 05/13/19 16:59 Lab Results 05/13/19 05/13/19 05/13/19 Range/Units 16:33 16:59 16:59 WBC 10.6 (3.8-10.6) k/uL RBC 5.13 (4.30-5.90) m/uL Hgb 15.4 (13.0-17.5) gm/dL Hct 46.9 (39.0-53.0) % MCV 91.4 (80.0-100.0) fL MCH 30.0 (25.0-35.0) pg MCHC 32.8 (31.0-37.0) g/dL RDW 13.1 (11.5-15.5) % Plt Count 193 (150-450) k/uL Neutrophils % 76 % Lymphocytes % 12 % Monocytes % 6 % Eosinophils % 2 % Basophils % 2 % Neutrophils # 8.1 H (1.3-7.7) k/uL Lymphocytes # 1.3 (1.0-4.8) k/uL Monocytes # 0.7 (0-1.0) k/uL Eosinophils # 0.2 (0-0.7) k/uL Basophils # 0.2 (0-0.2) k/uL PT 11.0 (9.0-12.0) sec INR 1.1 (<1.2) APTT 25.2 (22.0-30.0) sec Sodium 138 (137-145) mmol/L Potassium 4.6 (3.5-5.1) mmol/L Chloride 101 (98-107) mmol/L Carbon Dioxide 30 (22-30) mmol/L Anion Gap 7 mmol/L BUN 18 (9-20) mg/dL Creatinine 0.84 (0.66-1.25) mg/dL Est GFR (CKD-EPI)AfAm >90 (>60 ml/min/1.73 sqM) Est GFR (CKD-EPI)NonAf >90 (>60 ml/min/1.73 sqM) Glucose 102 H (74-99) mg/dL Calcium 9.4 (8.4-10.2) mg/dL Total Bilirubin 0.5 (0.2-1.3) mg/dL AST 28 (17-59) U/L ALT 22 (4-49) U/L Alkaline Phosphatase 102 (38-126) U/L Troponin I (0.000-0.034) ng/mL Total Protein 6.9 (6.3-8.2) g/dL Albumin 4.1 (3.5-5.0) g/dL 05/13/19 Range/Units 16:59 WBC (3.8-10.6) k/uL RBC (4.30-5.90) m/uL Hgb (13.0-17.5) gm/dL Hct (39.0-53.0) % MCV (80.0-100.0) fL MCH (25.0-35.0) pg MCHC (31.0-37.0) g/dL RDW (11.5-15.5) % Plt Count (150-450) k/uL Neutrophils % % Lymphocytes % % Monocytes % % Eosinophils % % Basophils % % Neutrophils # (1.3-7.7) k/uL Lymphocytes # (1.0-4.8) k/uL Monocytes # (0-1.0) k/uL Eosinophils # (0-0.7) k/uL Basophils # (0-0.2) k/uL PT (9.0-12.0) sec INR (<1.2) APTT (22.0-30.0) sec Sodium (137-145) mmol/L Potassium (3.5-5.1) mmol/L Chloride (98-107) mmol/L Carbon Dioxide (22-30) mmol/L Anion Gap mmol/L BUN (9-20) mg/dL Creatinine (0.66-1.25) mg/dL Est GFR (CKD-EPI)AfAm (>60 ml/min/1.73 sqM) Est GFR (CKD-EPI)NonAf (>60 ml/min/1.73 sqM) Glucose (74-99) mg/dL Calcium (8.4-10.2) mg/dL Total Bilirubin (0.2-1.3) mg/dL AST (17-59) U/L ALT (4-49) U/L Alkaline Phosphatase (38-126) U/L Troponin I <0.012 (0.000-0.034) ng/mL Total Protein (6.3-8.2) g/dL Albumin (3.5-5.0) g/dL - EKG Data EKG Comments: Ventricular rate 60, NE interval 200, QTC 438. Normal sinus rhythm. Normal ECG. No acute ST segment changes. Disposition Clinical Impression: Fall Disposition: HOME SELF-CARE Condition: Stable Instructions (If sedation given, give patient instructions): Fall Prevention for Older Adults (ED) Additional Instructions: Please return to the Emergency Department if symptoms worsen or any other concerns. Follow-up with PCP or hearing aid repairer Is patient prescribed a controlled substance at d/c from ED?: No Referrals: Herman Doss MD [Primary Care Provider] - 1-2 days
--- NOTE | 2019-05-13 16:01 | CT ---
EXAMINATION TYPE: CT brain wo con DATE OF EXAM: 05/13/2019 COMPARISON: None HISTORY: Syncopal episode with head injury today. CT DLP: 1202.4 mGycm Automated exposure control for dose reduction was used. TECHNIQUE: CT scan of the head is performed without contrast. FINDINGS: There is no acute intracranial hemorrhage or midline shift identified. There is diffuse v entricular and sulcal prominence consistent with diffuse age-related cerebral atrophy. There is low- attenuation in the periventricular white matter consistent with chronic small vessel ischemic change. The globes are intact and the visualized sinuses are clear. Bilateral cassius bullosa are incident ally seen. Magna cisterna magna is also incidentally seen. IMPRESSION: No acute intracranial hemorrhage or midline shift. There is diffuse age-related cerebra l atrophy and chronic small vessel ischemic change noted.
[2019-05-13 17:13] LABS: Basophils # (A) 0.2 k/uL (0-0.2); Basophils % (A) 2 %; Eosinophils # (A) 0.2 k/uL (0-0.7); Eosinophils % (A) 2 %; HCT 46.9 % (39.0-53.0); HGB 15.4 gm/dL (13.0-17.5); Lymphocytes # (A) 1.3 k/uL (1.0-4.8); Lymphocytes % (A) 12 %; MCHC 32.8 g/dL (31.0-37.0); MCV 91.4 fL (80.0-100.0); Mean Platelet Volume 8.8; Monocytes # (A) 0.7 k/uL (0-1.0); Monocytes % (A) 6 %; Neutrophils # (A) 8.1 k/uL (1.3-7.7); Neutrophils % (A) 76 %; Platelet Count 193 k/uL (150-450); RBC 5.13 m/uL (4.30-5.90); RDW 13.1 % (11.5-15.5); WBC 10.6 k/uL (3.8-10.6)
[2019-05-13 17:17] LABS: ALT 22 U/L (4-49); AST 28 U/L (17-59); African American GFR (CKD) >90 (>60 ml/min/1.73 sqM); Albumin 4.1 g/dL (3.5-5.0); Alkaline Phosphatase 102 U/L (38-126); Anion Gap 7 mmol/L; Blood Urea Nitrogen 18 mg/dL (9-20); Calcium 9.4 mg/dL (8.4-10.2); Carbon Dioxide 30 mmol/L (22-30); Chloride 101 mmol/L (98-107); Glucose 102 mg/dL (74-99); Non-African American GFR(CKD) >90 (>60 ml/min/1.73 sqM); Potassium 4.6 mmol/L (3.5-5.1); Sodium 138 mmol/L (137-145); Total Bilirubin 0.5 mg/dL (0.2-1.3); Total Protein 6.9 g/dL (6.3-8.2)
[2019-05-13 17:22] VITALS: BP 112/59; PULSE 60
[2019-05-13 17:23] LABS: INR 1.1 (<1.2); Partial Thromboplastin Time 25.2 sec (22.0-30.0)
[2019-05-13 18:13] VITALS: RESP 20
== END 2019-05-13 18:14 | disposition home or self-care (01) ==
LOC: EC 14:06
DX: S00.83XA Contusion of other part of head, initial encounter (principal); R42 Dizziness and giddiness; I48.91 Unspecified atrial fibrillation; I11.0 Hypertensive heart disease with heart failure; I50.9 Heart failure, unspecified; Z88.8 Allergy status to other drugs, medicaments and biological substances; Z79.01 Long term (current) use of anticoagulants; Z79.899 Other long term (current) drug therapy; Z98.890 Other specified postprocedural states; W01.0XXA Fall on same level from slipping, tripping and stumbling without subsequent striking against object, initial encounter; Y93.89 Activity, other specified; Y92.531 Health care provider office as the place of occurrence of the external cause
CPT/HCPCS: 36415; 70450; 80053; 84484; 85025; 85610; 85730; 93005; 99284

== ENCOUNTER 2023-02-15 14:12 | Inpatient (IN) | payer MEDICARE, BC ==
[2023-02-15] MEDS ORDERED: SODIUM CHLORIDE 0.9% 1,000 ML IV STA ×2 (14:25→16:41)
[2023-02-15] MEDS ORDERED: DILTIAZEM DRIP BOLUS FROM BAG 1 MG SOLN IV ONE ×2 (14:53→16:03)
--- NOTE | 2023-02-15 14:53 | ED ---
Recheck HPI - General Chief Complaint: Recheck/Abnormal Lab/Rx Stated Complaint: A fib Time Seen by Provider: 02/15/23 14:16 Source: patient, EMS, RN notes reviewed, old records reviewed Mode of arrival: EMS Limitations: no limitations - History of Present Illness Initial Comments: This is a 72-year-old male to the emergency department for evaluation. Patient has no complaints complaint here in the ER patient is doctor's office for her normal checkup today and found to be nature fibrillation with RVR he was then transported to the ER for evaluation management. Patient does have history of atrial fibrillation MD Complaint: abnormal lab (H a fibrillation with RVR) Returns Today for: Called Because of Abnormal Lab/Test Symptoms Since Prior Visit: no new symptoms Associated Symptoms: none Treatments Prior to Arrival: other - Related Data Home Medications Medication Instructions Recorded Confirmed Levothyroxine Sodium [Synthroid] 12.5 mcg PO MOTH 02/15/23 02/15/23 Levothyroxine Sodium [Synthroid] 25 mcg PO [id number] 02/15/23 02/15/23 Vit C/E/Zn/Coppr/Lutein/Zeaxan 1 tab PO BID 02/15/23 02/15/23 [Preservision Areds 2 Chew Tab] Previous Rx's Medication Instructions Recorded Apixaban [Eliquis] 5 mg PO BID #60 tab 06/06/17 Metoprolol Tartrate [Lopressor] 100 mg PO BID 30 Days #60 tab 02/19/23 Allergies Allergy/AdvReac Type Severity Reaction Status Date / Time furosemide [From Lasix] AdvReac caused Verified 02/15/23 18:34 kidney failure Review of Systems ROS Statement: Those systems with pertinent positive or pertinent negative responses have been documented in the HPI. ROS Other: All systems not noted in ROS Statement are negative. Past Medical History Past Medical History: Atrial Fibrillation, Heart Failure, Hypertension, Renal Disease Additional Past Medical History / Comment(s): past hx. kidney failure related to a medication-much better, follows w/Adama, benign tremors History of Any Multi-Drug Resistant Organisms: None Reported Past Surgical History: No Surgical Hx Reported Additional Past Surgical History / Comment(s): cardioversion Past Anesthesia/Blood Transfusion Reactions: No Reported Reaction Past Psychological History: No Psychological Hx Reported Smoking Status: Never smoker Past Alcohol Use History: None Reported Past Drug Use History: None Reported - Past Family History Father Family Medical History: Unable to Obtain Mother Family Medical History: Unable to Obtain General Exam Limitations: no limitations General appearance: alert, in no apparent distress, anxious Head exam: Present: atraumatic, normocephalic, normal inspection Eye exam: Present: normal appearance, PERRL, EOMI. Absent: scleral icterus, conjunctival injection, periorbital swelling ENT exam: Present: normal exam, mucous membranes moist Neck exam: Present: normal inspection. Absent: tenderness, meningismus, lymphadenopathy Respiratory exam: Present: normal lung sounds bilaterally. Absent: respiratory distress, wheezes, rales, rhonchi, stridor Cardiovascular Exam: Present: tachycardia, irregular rhythm, normal heart sounds. Absent: systolic murmur, diastolic murmur, rubs, gallop, clicks GI/Abdominal exam: Present: soft, normal bowel sounds. Absent: distended, tenderness, guarding, rebound, rigid Extremities exam: Present: normal inspection, full ROM, normal capillary refill. Absent: tenderness, pedal edema, joint swelling, calf tenderness Back exam: Present: normal inspection Neurological exam: Present: alert, oriented X3, CN II-XII intact Psychiatric exam: Present: normal affect, normal mood Skin exam: Present: warm, dry, intact, normal color. Absent: rash Course Vital Signs 02/15/23 02/15/23 02/15/23 14:20 14:31 15:00 Temperature 97.8 F Pulse Rate 76 144 H Respiratory 22 26 H Rate Blood Pressure 120/81 120/81 O2 Sat by Pulse 96 95 83 L Oximetry 02/15/23 02/15/23 02/15/23 15:38 16:00 16:04 Temperature Pulse Rate 144 H 105 H 133 H Respiratory 16 16 16 Rate Blood Pressure 105/90 105/73 101/77 O2 Sat by Pulse 95 96 97 Oximetry 02/15/23 02/15/23 02/15/23 17:00 17:05 18:00 Temperature Pulse Rate 69 64 80 Respiratory 30 H 18 17 Rate Blood Pressure 96/69 92/74 96/65 O2 Sat by Pulse 97 81 L Oximetry 02/15/23 02/15/23 02/15/23 18:35 19:07 19:50 Temperature Pulse Rate 77 82 93 Respiratory 18 Rate Blood Pressure 95/67 101/74 86/59 O2 Sat by Pulse 97 97 97 Oximetry 02/15/23 02/15/23 02/15/23 20:10 21:01 22:00 Temperature Pulse Rate 93 109 H 100 Respiratory 18 18 15 Rate Blood Pressure 87/65 87/65 100/73 O2 Sat by Pulse 98 97 Oximetry 02/15/23 02/15/23 02/16/23 23:00 23:24 03:30 Temperature 98 F Pulse Rate 124 H 89 133 H Respiratory 18 18 20 Rate Blood Pressure 101/74 116/66 109/90 O2 Sat by Pulse 98 96 95 Oximetry 02/16/23 02/16/23 05:50 12:06 Temperature 98.0 F Pulse Rate 110 H 148 H Respiratory 20 18 Rate Blood Pressure 117/91 109/75 O2 Sat by Pulse 94 L 95 Oximetry - Reevaluation(s) Reevaluation #1: 02/15/23 16:56 Attic record is reviewed Reevaluation #2: 02/15/23 16:56 Patient has significant rate reduction here in the ER with IV medication, still remains in atrial fibrillation Reevaluation #3: 02/15/23 16:56 Patient informed results questions answered Reevaluation #4: 02/15/23 14:56 Was pt. sent in by a medical professional or institution (, PA, DRUG INSPECTOR, urgent care, hospital, or longterm...) When possible be specific @ -no Did you speak to anyone other than the patient for history (EMS, parent, family, police, friend...)? What history was obtained from this source @ -no Did you review nursing and triage notes (agree or disagree)? Why? @ -agree Are old charts reviewed (outside hosp., previous admission, EMS record, old EKG, old radiological studies, urgent care reports/EKG's, longterm records)? Report findings @ -yes Differential Diagnosis (chest pain, altered mental status, abdominal pain women, abdominal pain men, vaginal bleeding, weakness, fever, dyspnea, syncope, headache, dizziness, GI bleed, back pain, seizure, CVA, palpatations, mental health, musculoskeletal)? @ -prior EKG interpreted by me (3pts min.). @ -yes X-rays interpreted by me (1pt min.). @ -yes CT interpreted by me (1pt min.). @ -no U/S interpreted by me (1pt. min.). @ -no What testing was considered but not performed or refused? (CT, X-rays, U/S, labs)? Why? @ -none What meds were considered but not given or refused? Why? @ -none Did you discuss the management of the patient with other professionals (professionals i.e. , PA, DRUG INSPECTOR, lab, RT, psych nurse, social media job titles, motel food service supervisor, teacher, chairman and chief executive officer, complex case manager)? Give summary @ -no Was smoking cessation discussed for >3mins.? @ -no Was critical care preformed (if so, how long)? @ -no Were there social determinants of health that impacted care today? How? (Homelessness, low income, unemployed, alcoholism, drug addiction, transportation, low edu. Level, literacy, decrease access to med. care, fci, rehab)? @ -none Was there de-escalation of care discussed even if they declined (Discuss DNR or withdrawal of care, Hospice)? DNR status @ -no What co-morbidities impacted this encounter? (DM, HTN, Smoking, COPD, CAD, Cancer, CVA, ARF, Chemo, Hep., AIDS, mental health diagnosis, sleep apnea, morbid obesity)? @ -none Was patient admitted / discharged? Hospital course, mention meds given and route, prescriptions, significant lab abnormalities, going to OR and other pertinent info. @ - 72 male to the emergency department for evaluation of A. fib with RVR rate is well-controlled currently. Patient does have blood pressure low side of normal. Patient cause emesis. The patient be admitted for cardiology to see, patient remains asymptomatic Admitted atrial fibrillation with RVR Undiagnosed new problem with uncertain prognosis? @ -no Drug Therapy requiring intensive monitoring for toxicity (Heparin, Nitro, Insulin, Cardizem)? @ -no Were any procedures done? @ -no Diagnosis/symptom? @ - Acute, or Chronic, or Acute on Chronic? @ -Acute Uncomplicated (without systemic symptoms) or Complicated (systemic symptoms)? @ -Complicated Side effects of treatment? @ -no Exacerbation, Progression, or Severe Exacerbation? @ -exacerbation Poses a threat to life or bodily function? How? (Chest pain, [place], [place], pneumonia, PE, COPD, DKA, ARF, appy, cholecystitis, CVA, Diverticulitis, Homicidal, Suicidal, threat to staff... and all critical care pts) @ -yes dysrhythmia Reevaluation #5: 02/15/23 16:56 Differential Palpitations Ventricular arrhythmias, atrial arrhythmias, myocardial infarction, anemia, thyrotoxicosis, electrolyte imbalance, hypokalemia, pulmonary embolism, pulmonary disease, drugs, alcohol, anxiety, stress.... This is not meant to be an all-inclusive list. - Consultations Consultation #1: Spoke with [facility] were agreeable to admit this patient Medical Decision Making - Medical Decision Making 72 male to the emergency department for evaluation of A. fib with RVR rate is well-controlled currently. Patient does have blood pressure low side of normal. Patient cause emesis. The patient be admitted for cardiology to see, patient remains asymptomatic - Lab Data Result diagrams: 02/19/23 07:36 02/19/23 07:36 Lab Results 02/15/23 02/15/23 02/15/23 Range/Units 14:38 14:38 14:38 WBC 9.2 (3.8-10.6) k/uL RBC 5.75 (4.30-5.90) m/uL Hgb 17.5 (13.0-17.5) gm/dL Hct 52.6 (39.0-53.0) % MCV 91.4 (80.0-100.0) fL MCH 30.4 (25.0-35.0) pg MCHC 33.2 (31.0-37.0) g/dL RDW 13.2 (11.5-15.5) % Plt Count 197 (150-450) k/uL MPV 9.4 Immature Gran % (Auto) % Absolute Nucleated RBC % Neutrophils % 72 % Lymphocytes % 18 % Monocytes % 5 % Eosinophils % 3 % Basophils % 1 % Immature Gran # X 10*3/uL Neutrophils # 6.6 (1.3-7.7) k/uL Lymphocytes # 1.6 (1.0-4.8) k/uL Monocytes # 0.5 (0-1.0) k/uL Eosinophils # 0.3 (0-0.7) k/uL Basophils # 0.1 (0-0.2) k/uL NRBC/100 WBC Diff (0.00-0.01) X 10*3/uL PT 11.8 (10.0-12.5) sec INR 1.1 (<1.2) APTT 25.5 (22.0-30.0) sec Sodium 139 (137-145) mmol/L Potassium 4.6 (3.5-5.1) mmol/L Chloride 108 H (98-107) mmol/L Carbon Dioxide 21 L (22-30) mmol/L Anion Gap 10 mmol/L BUN 21 H (9-20) mg/dL Creatinine 0.87 (0.66-1.25) mg/dL Est GFR (CKD-EPI) (>=60) Est GFR (CKD-EPI)AfAm >90 (>60 ml/min/1.73 sqM) Est GFR (CKD-EPI)NonAf 86 (>60 ml/min/1.73 sqM) BUN/Creatinine Ratio (12.00-20.00) Ratio Glucose 96 (74-99) mg/dL Plasma Lactic Acid Faustino (0.7-2.0) mmol/L Calcium 9.1 (8.4-10.2) mg/dL Phosphorus 3.3 (2.5-4.5) mg/dL Magnesium 2.2 (1.6-2.3) mg/dL Total Bilirubin 0.8 (0.2-1.3) mg/dL AST 31 (17-59) U/L ALT 22 (4-49) U/L Alkaline Phosphatase 121 (38-126) U/L Troponin I (0.000-0.034) ng/mL Total Protein 6.7 (6.3-8.2) g/dL Albumin 3.8 (3.5-5.0) g/dL Globulin (1.6-3.3) d/dL Albumin/Globulin Ratio (1.60-3.17) Ratio TSH 0.753 (0.465-4.680) mIU/L 02/15/23 02/15/23 02/15/23 Range/Units 14:38 14:38 17:39 WBC (3.8-10.6) k/uL RBC (4.30-5.90) m/uL Hgb (13.0-17.5) gm/dL Hct (39.0-53.0) % MCV (80.0-100.0) fL MCH (25.0-35.0) pg MCHC (31.0-37.0) g/dL RDW (11.5-15.5) % Plt Count (150-450) k/uL MPV Immature Gran % (Auto) % Absolute Nucleated RBC % Neutrophils % % Lymphocytes % % Monocytes % % Eosinophils % % Basophils % % Immature Gran # X 10*3/uL Neutrophils # (1.3-7.7) k/uL Lymphocytes # (1.0-4.8) k/uL Monocytes # (0-1.0) k/uL Eosinophils # (0-0.7) k/uL Basophils # (0-0.2) k/uL NRBC/100 WBC Diff (0.00-0.01) X 10*3/uL PT (10.0-12.5) sec INR (<1.2) APTT (22.0-30.0) sec Sodium (137-145) mmol/L Potassium (3.5-5.1) mmol/L Chloride (98-107) mmol/L Carbon Dioxide (22-30) mmol/L Anion Gap mmol/L BUN (9-20) mg/dL Creatinine (0.66-1.25) mg/dL Est GFR (CKD-EPI) (>=60) Est GFR (CKD-EPI)AfAm (>60 ml/min/1.73 sqM) Est GFR (CKD-EPI)NonAf (>60 ml/min/1.73 sqM) BUN/Creatinine Ratio (12.00-20.00) Ratio Glucose (74-99) mg/dL Plasma Lactic Acid Faustino 1.3 (0.7-2.0) mmol/L Calcium (8.4-10.2) mg/dL Phosphorus (2.5-4.5) mg/dL Magnesium (1.6-2.3) mg/dL Total Bilirubin (0.2-1.3) mg/dL AST (17-59) U/L ALT (4-49) U/L Alkaline Phosphatase (38-126) U/L Troponin I <0.012 <0.012 (0.000-0.034) ng/mL Total Protein (6.3-8.2) g/dL Albumin (3.5-5.0) g/dL Globulin (1.6-3.3) d/dL Albumin/Globulin Ratio (1.60-3.17) Ratio TSH (0.465-4.680) mIU/L 02/15/23 02/16/23 02/16/23 Range/Units 20:41 07:09 07:09 WBC 11.62 H (3.8-10.6) k/uL RBC 5.45 (4.30-5.90) m/uL Hgb 15.9 (13.0-17.5) gm/dL Hct 49.7 (39.0-53.0) % MCV 91.2 (80.0-100.0) fL MCH 29.2 (25.0-35.0) pg MCHC 32.0 (31.0-37.0) g/dL RDW 13.7 (11.5-15.5) % Plt Count 163 (150-450) k/uL MPV 11.5 Immature Gran % (Auto) 0.30 % Absolute Nucleated RBC 0 % Neutrophils % 79.9 % Lymphocytes % 11.5 % Monocytes % 5.3 % Eosinophils % 2.5 % Basophils % 0.5 % Immature Gran # 0.03 X 10*3/uL Neutrophils # 9.28 H (1.3-7.7) k/uL Lymphocytes # 1.34 (1.0-4.8) k/uL Monocytes # 0.62 (0-1.0) k/uL Eosinophils # 0.29 (0-0.7) k/uL Basophils # 0.06 (0-0.2) k/uL NRBC/100 WBC Diff 0 (0.00-0.01) X 10*3/uL PT (10.0-12.5) sec INR (<1.2) APTT (22.0-30.0) sec Sodium 141 (137-145) mmol/L Potassium 4.4 (3.5-5.1) mmol/L Chloride 110 H (98-107) mmol/L Carbon Dioxide 21.1 L (22-30) mmol/L Anion Gap 9.90 mmol/L BUN 15.6 (9-20) mg/dL Creatinine 0.9 (0.66-1.25) mg/dL Est GFR (CKD-EPI) 91 (>=60) Est GFR (CKD-EPI)AfAm (>60 ml/min/1.73 sqM) Est GFR (CKD-EPI)NonAf (>60 ml/min/1.73 sqM) BUN/Creatinine Ratio 17.33 (12.00-20.00) Ratio Glucose 91 (74-99) mg/dL Plasma Lactic Acid Faustino (0.7-2.0) mmol/L Calcium 8.6 L (8.4-10.2) mg/dL Phosphorus 2.6 (2.5-4.5) mg/dL Magnesium 2.0 (1.6-2.3) mg/dL Total Bilirubin 0.6 (0.2-1.3) mg/dL AST 16 (17-59) U/L ALT 15 (4-49) U/L Alkaline Phosphatase 108 (38-126) U/L Troponin I <0.012 (0.000-0.034) ng/mL Total Protein 5.6 L (6.3-8.2) g/dL Albumin 3.5 L (3.5-5.0) g/dL Globulin 2.1 (1.6-3.3) d/dL Albumin/Globulin Ratio 1.67 (1.60-3.17) Ratio TSH (0.465-4.680) mIU/L - EKG Data -: EKG Interpreted by Me (EKG is Atrial fibrillation with RVR will 140 QRS 90 QTC 366) Critical Care Time Critical Care Time: Yes Total Critical Care Time: 31 Disposition Clinical Impression: Atrial fibrillation with RVR Disposition: ADMITTED IP TO THIS HOSP Condition: Fair Is patient prescribed a controlled substance at d/c from ED?: No Time of Disposition: 16:45
[2023-02-15 15:13] LABS: Basophils # (A) 0.1 k/uL (0-0.2); Basophils % (A) 1 %; Eosinophils # (A) 0.3 k/uL (0-0.7); Eosinophils % (A) 3 %; HCT 52.6 % (39.0-53.0); HGB 17.5 gm/dL (13.0-17.5); Lymphocytes # (A) 1.6 k/uL (1.0-4.8); Lymphocytes % (A) 18 %; MCH 30.4 pg (25.0-35.0); MCHC 33.2 g/dL (31.0-37.0); MCV 91.4 fL (80.0-100.0); Mean Platelet Volume 9.4; Monocytes # (A) 0.5 k/uL (0-1.0); Monocytes % (A) 5 %; Neutrophils # (A) 6.6 k/uL (1.3-7.7); Neutrophils % (A) 72 %; Platelet Count 197 k/uL (150-450); RBC 5.75 m/uL (4.30-5.90); RDW 13.2 % (11.5-15.5); WBC 9.2 k/uL (3.8-10.6)
[2023-02-15 15:25] LABS: INR 1.1 (<1.2); Partial Thromboplastin Time 25.5 sec (22.0-30.0); Prothrombin Time 11.8 sec (10.0-12.5)
[2023-02-15 15:28] LABS: ALT 22 U/L (4-49); AST 31 U/L (17-59); African American GFR (CKD) >90 (>60 ml/min/1.73 sqM); Albumin 3.8 g/dL (3.5-5.0); Alkaline Phosphatase 121 U/L (38-126); Anion Gap 10 mmol/L; Blood Urea Nitrogen 21 mg/dL (9-20); Calcium 9.1 mg/dL (8.4-10.2); Carbon Dioxide 21 mmol/L (22-30); Chloride 108 mmol/L (98-107); Glucose 96 mg/dL (74-99); Magnesium 2.2 mg/dL (1.6-2.3); Non-African American GFR(CKD) 86 (>60 ml/min/1.73 sqM); Phosphorus 3.3 mg/dL (2.5-4.5); Sodium 139 mmol/L (137-145); Total Bilirubin 0.8 mg/dL (0.2-1.3); Total Protein 6.7 g/dL (6.3-8.2)
[2023-02-15 15:33] LABS: Potassium 4.6 mmol/L (3.5-5.1)
[2023-02-15] MEDS: DILTIAZEM 125 MG in SODIUM CHLORIDE 0.9% 100 ML IV SCH (15:40)
[2023-02-15] MEDS ORDERED: METOPROLOL TARTRATE 5 MG/5 ML VIAL IVP STA (16:03)
[2023-02-15] MEDS ORDERED: MORPHINE SULFATE 4 MG/ML SYRINGE IV PRN (16:46)
[2023-02-15] MEDS ORDERED: NALOXONE 0.4 MG/ML 1 ML VIAL IV PRN (16:46)
[2023-02-15] MEDS ORDERED: ONDANSETRON 4 MG/2 ML VIAL IVP PRN (16:46)
[2023-02-15] MEDS: SODIUM CHLORIDE 0.9% 1,000 ML IV SCH (17:05)
[2023-02-15] MEDS ORDERED: SODIUM CHLORIDE 0.9% 1,000 ML IV ONE (20:08)
--- NOTE | 2023-02-15 21:32 | XR ---
EXAMINATION: XR chest 1V portable DATE AND TIME: 02/15/2023 8:19 PM CLINICAL INDICATION: PH[facility]; cp TECHNIQUE: AP upright portable COMPARISON: None FINDINGS: EKG leads. The lungs are clear. The pleural spaces are negative. The cardiac silhouette is not enlarged. The remainder of the mediastinal silhouette is unremarkable. The skeletal structures and soft tissues are negative for acute findings. IMPRESSION: No acute radiographic process.
[2023-02-16] MEDS: LEVOTHYROXINE 25 MCG TAB PO SCH ×2 (10:26→11:33)
[2023-02-16] MEDS: PANTOPRAZOLE 40 MG/10 ML VIAL IV SCH (10:27)
[2023-02-16 11:11] LABS: Basophils # (A) 0.06 X 10*3/uL (0.00-0.10); Basophils % (A) 0.5 %; Eosinophils # (A) 0.29 X 10*3/uL (0.04-0.35); Eosinophils % (A) 2.5 %; HCT 49.7 % (39.6-50.0); HGB 15.9 d/dL (13.0-17.0); Lymphocytes # (A) 1.34 X 10*3/uL (0.90-5.00); Lymphocytes % (A) 11.5 %; MCH 29.2 pg (27.0-32.0); MCV 91.2 FL (80.0-97.0); Mean Platelet Volume 11.5 FL (9.5-12.2); Monocytes # (A) 0.62 X 10*3/uL (0.20-1.00); Monocytes % (A) 5.3 %; NRBC Per 100 WBC 0 X 10*3/uL (0.00-0.01); Neutrophils # (A) 9.28 X 10*3/uL (1.80-7.70); Neutrophils % (A) 79.9 %; Platelet Count 163 X 10*3/uL (140-440); RBC 5.45 X 10*6/uL (4.40-5.60); RDW 13.7 % (11.5-14.5); WBC 11.62 X 10*3/uL (4.50-10.00)
[2023-02-16 11:46] LABS: ALT 15 U/L (10-49); AST 16 U/L (14-35); Albumin 3.5 d/dL (3.8-4.9); Albumin/Globulin Ratio 1.67 Ratio (1.60-3.17); Alkaline Phosphatase 108 U/L (41-126); BUN/Creat Ratio 17.33 Ratio (12.00-20.00); Blood Urea Nitrogen 15.6 mg/dL (9.0-27.0); Calcium 8.6 mg/dL (8.7-10.3); Carbon Dioxide 21.1 mmol/L (21.6-31.8); Chloride 110 mmol/L (96-109); Globulin 2.1 d/dL (1.6-3.3); Glucose 91 mg/dL (70-110); Phosphorus 2.6 mg/dL (2.4-5.1); Potassium 4.4 mmol/L (3.5-5.5); Sodium 141 mmol/L (135-145); Total Bilirubin 0.6 mg/dL (0.3-1.2); Total Protein 5.6 d/dL (6.2-8.2)
--- NOTE | 2023-02-16 12:41 | P.HPIM ---
History of Present Illness H&P Date: 02/16/23 History of present illness; patient 72-year-old gentleman with past medical hist ory significant for chronic atrial fibrillation, chronic systolic heart failure who presented to the ER after being sent in from his PCPs office for A. fib with RVR. Patient initially went to his PCP office for annual physical, patient had vital signs and EKG done there and was found to be in A. fib with RVR. Patient denied any palpitations. Patient denied any complaint of of shortness of breat h. no complain of orthopnea and pnd. denied any nausea vomiting abdominal pain. Patient was sent to ER by PCP.Initial lab work done in the ER showed WBC 9.2, hemoglobin 17.5, platelet, 97, sodium 139 potassium 4.6, BUN 21, creatinine 0.87, troponin 0.012, TSH 0.753 EKG done in the ER heart rate 140, QRS 91, no ST segment elevation, no P waves seen, irregular in rhythm Chest x-ray done in the ER showed no acute cardiopulmonary process Patient admitted to medicine service REVIEW OF SYSTEMS: CONSTITUTIONAL: No fever, no malaise, no fatigue. HEENT: No recent visual problems or hearing problems. Denied any sore throat. CARDIOVASCULAR: No chest pain, orthopnea, PND, no palpitations, no syncope. PULMONARY: No shortness of breath, no cough, no hemoptysis. GASTROINTESTINAL: No diarrhea, no nausea, no vomiting, no abdominal pain. NEUROLOGICAL: No headaches, no weakness, no numbness. HEMATOLOGICAL: Denies any bleeding or petechiae. GENITOURINARY: Denies any burning micturition, frequency, or urgency. MUSCULOSKELETAL/RHEUMATOLOGICAL: Denies any joint pain, swelling, or any muscle pain. ENDOCRINE: Denies any polyuria or polydipsia. The rest of the 14-point review of systems is negative. PHYSICAL EXAMINATION: GENERAL: The patient is alert and oriented x3, not in any acute distress. Well developed, well nourished. HEENT: Pupils are round and equally reacting to light. EOMI. No scleral icterus. No conjunctival pallor. Normocephalic, atraumatic. No pharyngeal erythema. No thyromegaly. CARDIOVASCULAR: S1 and S2 present. No murmurs, rubs, or gallops. Tachycardic, irregular in rate and rhythm PULMONARY: Chest is clear to auscultation, no wheezing or crackles. ABDOMEN: Soft, nontender, nondistended, normoactive bowel sounds. No palpable organomegaly. MUSCULOSKELETAL: No joint swelling or deformity. EXTREMITIES: No cyanosis, clubbing, or pedal edema. NEUROLOGICAL: Gross neurological examination did not reveal any focal deficits. SKIN: No rashes. Assessment and plan A. fib with RVR Hypothyroidism History of cardiomyopathy Monitor vital signs Monitor CBC Monitor CMP Continue telemetry monitoring Trend troponin Ordered 2-D echo Continue IV Cardizem and resume Eliquis Cardiology consulted Labs and medication were reviewed.. Continue same treatment. Continue with symptomatic treatment. Resume home medication. Monitor labs and vitals. DVT and GI prophylaxis. Further recommendations as per clinical course of the patient Dictation was produced using [employer] dictation software. please excuse any grammatical, word or spelling errors. Past Medical History Past Medical History: Atrial Fibrillation, Heart Failure, Hypertension, Renal Disease Additional Past Medical History / Comment(s): past hx. kidney failure related to a medication-much better, follows w/Adama, benign tremors History of Any Multi-Drug Resistant Organisms: None Reported Past Surgical History: No Surgical Hx Reported Additional Past Surgical History / Comment(s): cardioversion Past Anesthesia/Blood Transfusion Reactions: No Reported Reaction Past Psychological History: No Psychological Hx Reported Smoking Status: Never smoker Past Alcohol Use History: None Reported Past Drug Use History: None Reported - Past Family History Father Family Medical History: Unable to Obtain Mother Family Medical History: Unable to Obtain Medications and Allergies Home Medications Medication Instructions Recorded Confirmed Type Apixaban [Eliquis] 5 mg PO BID #60 tab 06/06/17 02/15/23 Rx Levothyroxine Sodium [Synthroid] 12.5 mcg PO MOTH 02/15/23 02/15/23 History Levothyroxine Sodium [Synthroid] 25 mcg PO SUTUWEFRSA 02/15/23 02/15/23 History Vit C/E/Zn/Coppr/Lutein/Zeaxan 1 tab PO BID 02/15/23 02/15/23 History [Preservision Areds 2 Chew Tab] Allergies Allergy/AdvReac Type Severity Reaction Status Date / Time furosemide [From Lasix] AdvReac caused Verified 02/15/23 18:34 kidney failure Physical Exam Vitals: Vital Signs Temp Pulse Resp BP Pulse Ox 02/16/23 05:50 110 H 20 117/91 94 L 02/16/23 03:30 133 H 20 109/90 95 02/15/23 23:24 98 F 89 18 116/66 96 02/15/23 23:00 124 H 18 101/74 98 02/15/23 22:00 100 15 100/73 97 02/15/23 21:01 109 H 18 87/65 98 02/15/23 20:10 93 18 87/65 02/15/23 19:50 93 86/59 97 02/15/23 19:07 82 101/74 97 02/15/23 18:35 77 18 95/67 97 02/15/23 18:00 80 17 96/65 81 L 02/15/23 17:05 64 18 92/74 97 02/15/23 17:00 69 30 H 96/69 02/15/23 16:04 133 H 16 101/77 97 02/15/23 16:00 105 H 16 105/73 96 02/15/23 15:38 144 H 16 105/90 95 02/15/23 15:00 144 H 26 H 120/81 83 L 02/15/23 14:31 95 02/15/23 14:20 97.8 F 76 22 120/81 96 Intake and Output 02/15/23 02/16/23 02/16/23 22:59 06:59 14:59 Intake Total 5 0 Balance 5 0 Intake: Intake, IV Titration 5 0 Amount Diltiazem 125 mg In 5 0 Sodium Chloride 0.9% 100 ml @ 5 MG/HR 5 mls/hr IV .Q24H [facility] Rx#:[id number] Results CBC & Chem 7: 02/16/23 07:09 02/16/23 07:09 Labs: Abnormal Lab Results - Last 24 Hours (Table) 02/15/23 Range/Units 14:38 Chloride 108 H (98-107) mmol/L Carbon Dioxide 21 L (22-30) mmol/L BUN 21 H (9-20) mg/dL
--- NOTE | 2023-02-16 13:14 | P.CRDCN ---
History of Present Illness History of present illness: HISTORY OF PRESENT ILLNESS: This is a 72-year-old male with a past medical history significant for congestive heart failure, hypertension, hyperlipidemia, atrial fibrillation, and previous cardioversion. Patient follows in the office with Dr. Smith. We have been asked to see the patient in consultation for atrial fibrillation. Patient examined at the bedside. Patient states he "nicky" felt like he was palpitations. He denies shortness of breath. He reports mild chest discomfort at night. He reports mild dizziness. He denies any lower extremity edema. Patient was found to be in afib with RVR. Patient was started on IV Cardizem which is currently infusing at 10mg/hr. Telemetry reveals A-fib with a heart rate around 120. * EKG reveals atrial fibrillation with RVR * Chest xray negative for acute process * Laboratory data: WBC 11.62. Hemoglobin 15.9. Platelet count 163. Sodium 139. Potassium 4.6. BUN 21. Creatinine 0.87. Troponin negative 3. TSH 0 .753. * Current home cardiac medications include Eliquis 5mg BID * Most recent echocardiogram obtained in November 2020 revealed ejection fraction 55-60%, mild TR, mild MR * Cardiac catheterization history: Year unknown. However patient was found to have normal coronary arteries per cardiac catheterization with Dr. Jacobsen per office records REVIEW OF SYSTEMS: At the time of my exam: CONSTITUTIONAL: Denies fever or chills. HEENT: Denies blurred vision, vision changes, or eye pain. Denies hemoptysis CARDIOVASCULAR: Denies chest pain. Denies orthopnea. Denies PND. Denies palpitations RESPIRATORY: Denies shortness of breath. GASTROINTESTINAL: Denies abdominal pain. Denies nausea or vomiting. HEMATOLOGIC: Denies bleeding disorders. GENITOURINARY: Denies any blood in urine. SKIN: Denies pruitis. Denies rash. PHYSICAL EXAM: VITAL SIGNS: Reviewed. GENERAL: Well-developed in no acute distress. HEENT: Head is normocephalic. Pupils are equal, round. Sclerae anicteric. Mucous membranes of the mouth are moist. Neck supple. No JVD or thyromegaly LUNGS: Respirations even and unlabored. Lungs essentially clear to auscultation bilaterally. HEART: Tachycardic. Irregular rate and rhythm. S1 and S2 heard. ABDOMEN: Soft. Nondistended. Nontender. EXTREMITIES: Normal range of motion. No clubbing or cyanosis. Peripheral pulses intact. No lower extremity edema NEUROLOGIC: Awake and alert. Oriented x 3. ASSESSMENT: Paroxysmal atrial fibrillation with RVR History of cardioversion Hypertension Hyperlipidemia Chronic congestive heart failure with preserved ejection fraction, currently euvolemic Previous intolerance to metoprolol secondary to lightheadedness History of essential tremors PLAN: Obtain 2D echo to assess cardiac structure Add metoprolol 25mg BID Wean off Cardizem drip Continue Eliquis Continue telemetry monitoring Further recommendations pending patient course Nurse practitioner note has been reviewed by physician. Signing provider agrees with the documented findings, assessment, and plan of care. Past Medical History Past Medical History: Atrial Fibrillation, Heart Failure, Hypertension, Renal Disease Additional Past Medical History / Comment(s): past hx. kidney failure related to a medication-much better, follows w/Adama, benign tremors History of Any Multi-Drug Resistant Organisms: None Reported Past Surgical History: No Surgical Hx Reported Additional Past Surgical History / Comment(s): cardioversion Past Anesthesia/Blood Transfusion Reactions: No Reported Reaction Past Psychological History: No Psychological Hx Reported Smoking Status: Never smoker Past Alcohol Use History: None Reported Past Drug Use History: None Reported - Past Family History Father Family Medical History: Unable to Obtain Mother Family Medical History: Unable to Obtain Medications and Allergies Home Medications Medication Instructions Recorded Confirmed Type Apixaban [Eliquis] 5 mg PO BID #60 tab 06/06/17 02/15/23 Rx Levothyroxine Sodium [Synthroid] 12.5 mcg PO MOTH 02/15/23 02/15/23 History Levothyroxine Sodium [Synthroid] 25 mcg PO SUTUWEFRSA 02/15/23 02/15/23 History Vit C/E/Zn/Coppr/Lutein/Zeaxan 1 tab PO BID 02/15/23 02/15/23 History [Preservision Areds 2 Chew Tab] Allergies Allergy/AdvReac Type Severity Reaction Status Date / Time furosemide [From Lasix] AdvReac caused Verified 02/15/23 18:34 kidney failure Physical Exam Vitals: Vital Signs Temp Pulse Resp BP Pulse Ox 02/16/23 05:50 110 H 20 117/91 94 L 02/16/23 03:30 133 H 20 109/90 95 02/15/23 23:24 98 F 89 18 116/66 96 02/15/23 23:00 124 H 18 101/74 98 02/15/23 22:00 100 15 100/73 97 02/15/23 21:01 109 H 18 87/65 98 02/15/23 20:10 93 18 87/65 02/15/23 19:50 93 86/59 97 02/15/23 19:07 82 101/74 97 02/15/23 18:35 77 18 95/67 97 02/15/23 18:00 80 17 96/65 81 L 02/15/23 17:05 64 18 92/74 97 02/15/23 17:00 69 30 H 96/69 02/15/23 16:04 133 H 16 101/77 97 02/15/23 16:00 105 H 16 105/73 96 02/15/23 15:38 144 H 16 105/90 95 02/15/23 15:00 144 H 26 H 120/81 83 L 02/15/23 14:31 95 02/15/23 14:20 97.8 F 76 22 120/81 96 Intake and Output 02/15/23 02/16/23 02/16/23 22:59 06:59 14:59 Intake Total 5 0 Balance 5 0 Intake: Intake, IV Titration 5 0 Amount Diltiazem 125 mg In 5 0 Sodium Chloride 0.9% 100 ml @ 5 MG/HR 5 mls/hr IV .Q24H [facility] Rx#:[id number] Results 02/16/23 07:09 02/16/23 07:09 Cardiac Enzymes 02/15/23 02/15/23 02/15/23 Range/Units 14:38 14:38 17:39 AST 31 (17-59) U/L Troponin I <0.012 <0.012 (0.000-0.034) ng/mL 02/15/23 Range/Units 20:41 AST (17-59) U/L Troponin I <0.012 (0.000-0.034) ng/mL Coagulation 02/15/23 Range/Units 14:38 PT 11.8 (10.0-12.5) sec APTT 25.5 (22.0-30.0) sec CBC 02/15/23 02/16/23 Range/Units 14:38 07:09 WBC 9.2 11.62 H (3.8-10.6) k/uL RBC 5.75 5.45 (4.30-5.90) m/uL Hgb 17.5 15.9 (13.0-17.5) gm/dL Hct 52.6 49.7 (39.0-53.0) % Plt Count 197 163 (150-450) k/uL Comprehensive Metabolic Panel 02/15/23 Range/Units 14:38 Sodium 139 (137-145) mmol/L Potassium 4.6 (3.5-5.1) mmol/L Chloride 108 H (98-107) mmol/L Carbon Dioxide 21 L (22-30) mmol/L BUN 21 H (9-20) mg/dL Creatinine 0.87 (0.66-1.25) mg/dL Glucose 96 (74-99) mg/dL Calcium 9.1 (8.4-10.2) mg/dL AST 31 (17-59) U/L ALT 22 (4-49) U/L Alkaline Phosphatase 121 (38-126) U/L Total Protein 6.7 (6.3-8.2) g/dL Albumin 3.8 (3.5-5.0) g/dL Current Medications Generic Name Dose Route Start Last Admin Trade Name Freq PRN Reason Stop Dose Admin Apixaban 5 mg 02/16/23 21:00 Apixaban 5 Mg Tab PO BID [facility] Protocol Diltiazem HCl 125 mg/ Sodium 125 mls @ 5 mls/hr 02/15/23 15:00 02/16/23 03:32 Chloride IV 5 mg/hr .Q24H [facility] 5 mls/hr Infusion 5 MG/HR Sodium Chloride 1,000 mls @ 75 mls/hr 02/15/23 17:00 02/15/23 17:05 Saline 0.9% IV 75 mls/hr .[id number] [facility] Administration Levothyroxine Sodium 12.5 mcg 02/19/23 06:30 02/16/23 10:26 Levothyroxine 25 Mcg Tab PO 12.5 mcg MoTh@0630 [facility] Administration Levothyroxine Sodium 25 mcg 02/16/23 10:15 Levothyroxine 25 Mcg Tab PO SuTuWeFrSa@0630 [facility] Morphine Sulfate 4 mg 02/15/23 16:46 Morphine Sulfate 4 Mg/Ml Syringe IV Q4HR PRN Severe Pain (Scale 7 to 10) Naloxone HCl 0.2 mg 02/15/23 16:46 Naloxone 0.4 Mg/Ml 1 Ml Vial IV Q2M PRN Opioid Reversal Ondansetron HCl 4 mg 02/15/23 16:46 Ondansetron 4 Mg/2 Ml Vial IVP Q8HR PRN Nausea And Vomiting Pantoprazole Sodium 40 mg 02/16/23 09:00 02/16/23 10:27 Pantoprazole 40 Mg/10 Ml Vial IV 40 mg DAILY [facility] Administration Intake and Output 02/15/23 02/16/23 02/16/23 22:59 06:59 14:59 Intake Total 5 0 Balance 5 0 Intake: Intake, IV Titration 5 0 Amount Diltiazem 125 mg In 5 0 Sodium Chloride 0.9% 100 ml @ 5 MG/HR 5 mls/hr IV .Q24H [facility] Rx#:[id number] 02/16/23 07:09 02/15/23 14:38
[2023-02-16] MEDS: METOPROLOL TARTRATE 25 MG TAB PO SCH ×2 (13:19→20:46)
[2023-02-16] MEDS: SODIUM CHLORIDE 0.9% 1,000 ML IV SCH ×2 (13:20→23:58)
--- NOTE | 2023-02-16 18:26 | CA ---
Transthoracic Echo Report Name: Demetrius Rodriguez Age: 72 Gender: M : 1950 Exam Date: 02/16/2023 16:11 Exam Location: [facility] Ht (in): 68 Wt (lb): 208 Ordering Physician: Edie Holbrook Attending/Referring Phys: [id number], Yusef [employer] Lida Hernandez, YUNIER Procedure CPT: Indications: LV function Cardiac Hx: Technical Quality: Fair Contrast 1: Lumason Total Dose (mL): 3 Contrast 2: Total Dose (mL): MEASUREMENTS (Male / Female) Normal Values 2D ECHO LV Diastolic Diameter PLAX 5.7 cm 4.2 - 5.9 / 3.9 - 5.3 cm LV Systolic Diameter PLAX 4.2 cm IVS Diastolic Thickness 1.0 cm 0.6 - 1.0 / 0.6 - 0.9 cm LVPW Diastolic Thickness 1.0 cm 0.6 - 1.0 / 0.6 - 0.9 cm LV Relative Wall Thickness 0.3 RV Internal Dim ED PLAX 3.3 cm LA Systolic Diameter LX 3.9 cm 3.0 - 4.0 / 2.7 - 3.8 cm LV Diastolic Volume MOD BP 81.2 cm??? 67 - 155 / 56 - 104 cm??? LV Systolic Volume MOD BP 39.1 cm??? - 58 / 19 - 49 cm??? LV Ejection Fraction MOD BP 51.9 % >= 55 % LV Cardiac Index MOD BP 2225.3 cm???/min???m??? LV Diastolic Volume MOD 4C 82.7 cm??? LV Systolic Volume MOD 4C 34.3 cm??? LV Ejection Fraction MOD 4C 58.5 % LV Cardiac Index MOD 4C 2554.8 cm???/min???m??? LV Diastolic Length 4C 8.4 cm LV Systolic Length 4C 6.7 cm LV Diastolic Volume MOD 2C 75.2 cm??? LV Systolic Volume MOD 2C 45.3 cm??? LV Ejection Fraction MOD 2C 39.8 % LV Cardiac Index MOD 2C 1582.6 cm???/min???m??? LV Diastolic Length 2C 7.8 cm LV Systolic Length 2C 6.9 cm LA Volume 72.5 cm??? 18 - 58 / 22 - 52 cm??? LA Volume Index 33.6 cm???/m??? 16 - 28 cm???/m??? M-MODE Aortic Root Diameter MM 3.3 cm MV E Point Septal Separation 1.3 cm AV Cusp Separation MM 1.8 cm DOPPLER AV Peak Velocity 112.2 cm/s AV Peak Gradient 5.0 mmHg MV Area PHT 4.3 cm??? MV Deceleration Time 164.6 ms TR Peak Velocity 241.1 cm/s TR Peak Gradient 23.3 mmHg Right Ventricular Systolic Press 28.2 mmHg FINDINGS Left Ventricle Left ventricular ejection fraction is estimated at 30-35 %. Left ventricular cavity size normal. Left ventricular wall thickness normal. Moderately reduced global left ventricular systolic function. Right Ventricle Mild right ventricular dilatation. Right ventricular systolic pressure within normal limits. Right Atrium Normal right atrial size. Left Atrium Mildly increased left atrial volume. Mildly increased left atrial area. Mitral Valve Mitral valve thickened. Mitral annular calcification. Mild mitral regurgitation. Aortic Valve Trileaflet aortic valve. No aortic valve stenosis or regurgitation. Tricuspid Valve Structurally normal tricuspid valve. Mild tricuspid regurgitation. Pulmonic Valve Structurally normal pulmonic valve. No pulmonic regurgitation. Pericardium No pericardial effusion. Aorta Normal size aortic root and proximal ascending aorta. CONCLUSIONS Reduced LV size and systolic function RV enlargement Previewed by: Dr. Arturo Schmitt MD (Electronically Signed) Final Date: 16 February 2023 18:26
[2023-02-16] MEDS: APIXABAN 5 MG TAB PO SCH (20:48)
[2023-02-16] MEDS: DILTIAZEM 125 MG in SODIUM CHLORIDE 0.9% 100 ML IV SCH (23:57)
[2023-02-17] MEDS: LEVOTHYROXINE 25 MCG TAB PO SCH (06:07)
[2023-02-17] MEDS: PANTOPRAZOLE 40 MG/10 ML VIAL IV SCH (08:53)
[2023-02-17] MEDS: APIXABAN 5 MG TAB PO SCH ×2 (08:53→19:51)
[2023-02-17] MEDS: METOPROLOL TARTRATE 25 MG TAB PO SCH (13:05)
[2023-02-17] MEDS: SODIUM CHLORIDE 0.9% 1,000 ML IV SCH (13:07)
--- NOTE | 2023-02-17 13:41 | P.PN ---
Subjective Progress Note Date: 02/17/23 patient 72-year-old gentleman with past medical history significant for chronic atrial fibrillation, chronic systolic heart failure who presented to the ER after being sent in from his PCPs office for A. fib with RVR. Patient initially went to his PCP office for annual physical, patient had vital signs and EKG done there and was found to be in A. fib with RVR. Patient denied any palpitations. Patient denied any complaint of of shortness of breath. no complain of orthopnea and pnd. denied any nausea vomiting abdominal pain. Patient was sent to ER by PCP.Initial lab work done in the ER showed WBC 9.2, hemoglobin 17.5, platelet, 97, sodium 139 potassium 4.6, BUN 21, creatinine 0.87, troponin 0.012, TSH 0.753 EKG done in the ER heart rate 140, QRS 91, no ST segment elevation, no P waves seen, irregular in rhythm Chest x-ray done in the ER showed no acute cardiopulmonary process Patient admitted to medicine service 02/17. Patient seen and examined. Denies any chest Palpitation. No acute issues overnight. Vital signs stable REVIEW OF SYSTEMS: CONSTITUTIONAL: No fever, no malaise,. CARDIOVASCULAR: No chest pain, no palpitations, no syncope. PULMONARY: No shortness of breath, no cough, GASTROINTESTINAL: No diarrhea, no nausea, no vomiting, no abdominal pain. NEUROLOGICAL: No headaches, no weakness, PHYSICAL EXAMINATION: GENERAL: The patient is alert and oriented x3, not in any acute distress. Well developed, well nourished. HEENT: Pupils are round and equally reacting to light. EOMI. No scleral icterus. No conjunctival pallor. Normocephalic, atraumatic. No pharyngeal erythema. No thyromegaly. CARDIOVASCULAR: S1 and S2 present. No murmurs, rubs, or gallops. PULMONARY: Chest is clear to auscultation, no wheezing or crackles. ABDOMEN: Soft, nontender, nondistended, normoactive bowel sounds. No palpable organomegaly. MUSCULOSKELETAL: No joint swelling or deformity. EXTREMITIES: No cyanosis, clubbing, or pedal edema. NEUROLOGICAL: Gross neurological examination did not reveal any focal deficits. SKIN: No rashes. Assessment and plan A. fib with RVR Hypothyroidism cardiomyopathy Monitor vital signs Monitor CBC Monitor CMP Continue telemetry monitoring Trend troponin 2-D echo done showed LVEF of 35%, moderately reduced global left ventricular systolic function Continue Eliquis wean Cardizem drip, continue Toprol Cardiology following Labs and medication were reviewed.. Continue same treatment. Continue with symptomatic treatment. Resume home medication. Monitor labs and vitals. DVT and GI prophylaxis. Further recommendations as per clinical course of the patient Dictation was produced using [employer] dictation software. please excuse any grammatical, word or spelling errors. Objective - Vital Signs Vital signs: Vital Signs Temp 97.7 F 02/17/23 13:00 Pulse 96 02/17/23 13:00 Resp 16 02/17/23 13:00 BP 93/55 02/17/23 13:00 Pulse Ox 94 L 02/17/23 13:00 FiO2 Intake & Output 02/16/23 02/17/23 02/17/23 18:59 06:59 18:59 Intake Total 240 1012.083 183.667 Balance 240 1012.083 183.667 Weight 93.44 kg Intake: IV 10 Invasive Line 1 10 Intake, IV Titration 1002.083 65.667 Amount Diltiazem 125 mg In 102.083 65.667 Sodium Chloride 0.9% 100 ml @ 5 MG/HR 5 mls/hr IV .Q24H [facility] Rx#:[id number] Sodium Chloride 0.9% 1, 900 000 ml @ 75 mls/hr IV . [id number] [facility] Rx#:[id number] Oral 240 118 Other: Voiding Method Toilet Toilet Toilet # Voids 1 - Labs CBC & Chem 7: 02/16/23 07:09 02/16/23 07:09
[2023-02-17] MEDS: DILTIAZEM 125 MG in SODIUM CHLORIDE 0.9% 100 ML IV SCH (18:29)
--- NOTE | 2023-02-17 18:45 | P.PN ---
Subjective Progress Note Date: 02/17/23 Progress note: Patient is doing well from cardiac vessel standpoint. He is rate controlled atrial fibrillation. He does not have significant volume overload. This is a 72-year-old male with a past medical history significant for congestive heart failure, hypertension, hyperlipidemia, atrial fibrillation, and previous cardioversion. Patient follows in the office with Dr. Smith. We have been asked to see the patient in consultation for atrial fibrillation. Patient examined at the bedside. Patient states he "nicky" felt like he was palpitations. He denies shortness of breath. He reports mild chest discomfort at night. He reports mild dizziness. He denies any lower extremity edema. Patient was found to be in afib with RVR. Patient was started on IV Cardizem which is currently infusing at 10mg/hr. Telemetry reveals A-fib with a heart rate around 120. EKG reveals atrial fibrillation with RVR Chest xray negative for acute process Laboratory data: WBC 11.62. Hemoglobin 15.9. Platelet count 163. Sodium 139. Potassium 4.6. BUN 21. Creatinine 0.87. Troponin negative 3. TSH 0.753. Current home cardiac medications include Eliquis 5mg BID Most recent echocardiogram obtained in November 2020 revealed ejection fraction 55-60%, mild TR, mild MR Cardiac catheterization history: Year unknown. However patient was found to have normal coronary arteries per cardiac catheterization with Dr. Jacobsen per office records REVIEW OF SYSTEMS: At the time of my exam: CONSTITUTIONAL: Denies fever or chills. HEENT: Denies blurred vision, vision changes, or eye pain. Denies hemoptysis CARDIOVASCULAR: Denies chest pain. Denies orthopnea. Denies PND. Denies palpitations RESPIRATORY: Denies shortness of breath. GASTROINTESTINAL: Denies abdominal pain. Denies nausea or vomiting. HEMATOLOGIC: Denies bleeding disorders. GENITOURINARY: Denies any blood in urine. SKIN: Denies pruitis. Denies rash. PHYSICAL EXAM: VITAL SIGNS: Reviewed. GENERAL: Well-developed in no acute distress. HEENT: Head is normocephalic. Pupils are equal, round. Sclerae anicteric. Mucous membranes of the mouth are moist. Neck supple. No JVD or thyromegaly LUNGS: Respirations even and unlabored. Lungs essentially clear to auscultation bilaterally. HEART: Tachycardic. Irregular rate and rhythm. S1 and S2 heard. ABDOMEN: Soft. Nondistended. Nontender. EXTREMITIES: Normal range of motion. No clubbing or cyanosis. Peripheral pulses intact. No lower extremity edema NEUROLOGIC: Awake and alert. Oriented x 3. ASSESSMENT: Paroxysmal atrial fibrillation with RVR History of cardioversion Hypertension Hyperlipidemia Chronic congestive heart failure with preserved ejection fraction, currently euvolemic Previous intolerance to metoprolol secondary to lightheadedness History of essential tremors PLAN: Discontinue IV fluids and Cardizem drip Increase metoprolol to 50 mg twice a day Continue Eliquis 5 mg twice a day Follow-up tomorrow with echo results. If everything normal okay to be discharg ed with outpatient follow-up from cardiac vessel standpoint Objective - Vital Signs Vital signs: Vital Signs Temp 97.7 F 02/17/23 13:00 Pulse 86 02/17/23 16:40 Resp 16 02/17/23 16:40 BP 132/86 02/17/23 16:40 Pulse Ox 96 02/17/23 16:40 FiO2 Intake & Output 02/16/23 02/17/23 02/17/23 18:59 06:59 18:59 Intake Total 240 1899.704 1562.667 Balance 240 2132.640 5214.667 Weight 93.44 kg Intake: IV 10 Invasive Line 1 10 Intake, IV Titration 1002.083 590.667 Amount Diltiazem 125 mg In 102.083 65.667 Sodium Chloride 0.9% 100 ml @ 5 MG/HR 5 mls/hr IV .Q24H [facility] Rx#:[id number] Sodium Chloride 0.9% 1, 900 525 000 ml @ 75 mls/hr IV . [id number] [facility] Rx#:[id number] Oral 240 598 Other: Voiding Method Toilet Toilet Toilet # Voids 1 3 - Labs CBC & Chem 7: 02/16/23 07:09 02/16/23 07:09
[2023-02-17] MEDS: METOPROLOL TARTRATE 50 MG TAB PO SCH (19:51)
[2023-02-18] MEDS: LEVOTHYROXINE 25 MCG TAB PO SCH (06:38)
[2023-02-18] MEDS: METOPROLOL TARTRATE 50 MG TAB PO SCH (08:55)
[2023-02-18] MEDS: APIXABAN 5 MG TAB PO SCH ×2 (08:55→20:05)
[2023-02-18] MEDS: PANTOPRAZOLE 40 MG/10 ML VIAL IV SCH (08:55)
--- NOTE | 2023-02-18 12:19 | P.PN ---
Subjective Progress Note Date: 02/18/23 patient 72-year-old gentleman with past medical history significant for chronic atrial fibrillation, chronic systolic heart failure who presented to the ER after being sent in from his PCPs office for A. fib with RVR. Patient initially went to his PCP office for annual physical, patient had vital signs and EKG done there and was found to be in A. fib with RVR. Patient denied any palpitations. Patient denied any complaint of of shortness of breath. no complain of orthopnea and pnd. denied any nausea vomiting abdominal pain. Patient was sent to ER by PCP.Initial lab work done in the ER showed WBC 9.2, hemoglobin 17.5, platelet, 97, sodium 139 potassium 4.6, BUN 21, creatinine 0.87, troponin 0.012, TSH 0.753 EKG done in the ER heart rate 140, QRS 91, no ST segment elevation, no P waves seen, irregular in rhythm Chest x-ray done in the ER showed no acute cardiopulmonary process Patient admitted to medicine service 02/17. Patient seen and examined. Denies any chest Palpitation. No acute issues overnight. Vital signs stable 02/18. Patient seen and examined. Denies any shortness of breath, rate is controlled. No Palpitations. Denies any swelling of feet REVIEW OF SYSTEMS: CONSTITUTIONAL: No fever, no malaise,. CARDIOVASCULAR: No chest pain, no palpitations, no syncope. PULMONARY: No shortness of breath, no cough, GASTROINTESTINAL: No diarrhea, no nausea, no vomiting, no abdominal pain. NEUROLOGICAL: No headaches, no weakness, PHYSICAL EXAMINATION: GENERAL: The patient is alert and oriented x3, not in any acute distress. Well developed, well nourished. HEENT: Pupils are round and equally reacting to light. EOMI. No scleral icterus. No conjunctival pallor. Normocephalic, atraumatic. No pharyngeal erythema. No thyromegaly. CARDIOVASCULAR: S1 and S2 present. No murmurs, rubs, or gallops. PULMONARY: Chest is clear to auscultation, no wheezing or crackles. ABDOMEN: Soft, nontender, nondistended, normoactive bowel sounds. No palpable organomegaly. MUSCULOSKELETAL: No joint swelling or deformity. EXTREMITIES: No cyanosis, clubbing, or pedal edema. NEUROLOGICAL: Gross neurological examination did not reveal any focal deficits. SKIN: No rashes. Assessment and plan A. fib with RVR Hypothyroidism cardiomyopathy Monitor vital signs Monitor CBC Monitor CMP Continue telemetry monitoring Trend troponin 2-D echo done showed LVEF of 35%, moderately reduced global left ventricular systolic function Continue [facility]a [facility] Cardiology following Labs and medication were reviewed.. Continue same treatment. Continue with symptomatic treatment. Resume home medication. Monitor labs and vitals. DVT and GI prophylaxis. Further recommendations as per clinical course of the patient Dictation was produced using [employer] dictation software. please excuse any grammatical, word or spelling errors. Objective - Vital Signs Vital signs: Vital Signs Temp 97.5 F L 02/18/23 04:28 Pulse 72 02/18/23 04:28 Resp 16 02/18/23 04:28 BP 91/55 02/18/23 04:28 Pulse Ox 95 02/18/23 04:28 FiO2 Intake & Output 02/17/23 02/18/23 02/18/23 18:59 06:59 18:59 Intake Total 1188.667 540 Balance 1188.667 540 Intake: Intake, IV Titration 590.667 Amount Diltiazem 125 mg In 65.667 Sodium Chloride 0.9% 100 ml @ 5 MG/HR 5 mls/hr IV .Q24H LUPIS Rx#:[id number] Sodium Chloride 0.9% 1, 525 000 ml @ 75 mls/hr IV . [id number] LUPIS Rx#:[id number] Oral 598 540 Other: Voiding Method Toilet Toilet # Voids 3 1 - Labs CBC & Chem 7: 02/16/23 07:09 02/16/23 07:09
--- NOTE | 2023-02-18 19:27 | P.PN ---
Subjective Progress Note Date: 02/18/23 Progress note: Patient is doing well from cardiac vessel standpoint. He is rate controlled atrial fibrillation. He does not have significant volume overload. His echo showed an EF of 40-45%. This is a 72-year-old male with a past medical history significant for congestive heart failure, hypertension, hyperlipidemia, atrial fibrillation, and previous cardioversion. Patient follows in the office with Dr. Smith. We have been asked to see the patient in consultation for atrial fibrillation. Patient examined at the bedside. Patient states he "nicky" felt like he was palpitations. He denies shortness of breath. He reports mild chest discomfort at night. He reports mild dizziness. He denies any lower extremity edema. Patient was found to be in afib with RVR. Patient was started on IV Cardizem which is currently infusing at 10mg/hr. Telemetry reveals A-fib with a heart rate around 120. EKG reveals atrial fibrillation with RVR Chest xray negative for acute process Laboratory data: WBC 11.62. Hemoglobin 15.9. Platelet count 163. Sodium 139. Potassium 4.6. BUN 21. Creatinine 0.87. Troponin negative 3. TSH 0.753. Current home cardiac medications include Eliquis 5mg BID Most recent echocardiogram obtained in November 2020 revealed ejection fraction 55-60%, mild TR, mild MR Cardiac catheterization history: Year unknown. However patient was found to have normal coronary arteries per cardiac catheterization with Dr. Jacobsen per office records REVIEW OF SYSTEMS: At the time of my exam: CONSTITUTIONAL: Denies fever or chills. HEENT: Denies blurred vision, vision changes, or eye pain. Denies hemoptysis CARDIOVASCULAR: Denies chest pain. Denies orthopnea. Denies PND. Denies palpitations RESPIRATORY: Denies shortness of breath. GASTROINTESTINAL: Denies abdominal pain. Denies nausea or vomiting. HEMATOLOGIC: Denies bleeding disorders. GENITOURINARY: Denies any blood in urine. SKIN: Denies pruitis. Denies rash. PHYSICAL EXAM: VITAL SIGNS: Reviewed. GENERAL: Well-developed in no acute distress. HEENT: Head is normocephalic. Pupils are equal, round. Sclerae anicteric. Mucous membranes of the mouth are moist. Neck supple. No JVD or thyromegaly LUNGS: Respirations even and unlabored. Lungs essentially clear to auscultation bilaterally. HEART: Tachycardic. Irregular rate and rhythm. S1 and S2 heard. ABDOMEN: Soft. Nondistended. Nontender. EXTREMITIES: Normal range of motion. No clubbing or cyanosis. Peripheral pulses intact. No lower extremity edema NEUROLOGIC: Awake and alert. Oriented x 3. ASSESSMENT: Paroxysmal atrial fibrillation with RVR HFmrEF, EF 40% History of cardioversion Hypertension Hyperlipidemia Chronic congestive heart failure with preserved ejection fraction, currently euvolemic Previous intolerance to metoprolol secondary to lightheadedness History of essential tremors PLAN: Increase metoprolol to 75 mg twice a day. If blood pressure still tolerates, will increase beta carlos to 100 mg twice a day tomorrow Continue Eliquis 5 mg twice a day Anticipate discharge tomorrow Outpatient follow-up for mildly reduced ejection fraction and ischemic evaluation Objective - Vital Signs Vital signs: Vital Signs Temp 97.6 F 02/18/23 12:00 Pulse 106 H 02/18/23 16:10 Resp 18 02/18/23 16:10 BP 121/56 02/18/23 16:10 Pulse Ox 93 L 02/18/23 16:10 FiO2 Intake & Output 02/18/23 02/18/23 02/19/23 06:59 18:59 06:59 Intake Total 540 1440 Balance 540 1440 Intake: Oral 540 1440 Other: Voiding Method Toilet Toilet # Voids 1 3 - Labs CBC & Chem 7: 02/16/23 07:09 02/16/23 07:09
[2023-02-18] MEDS: METOPROLOL TARTRATE 25 MG TAB PO SCH (20:05)
[2023-02-19] MEDS: LEVOTHYROXINE 25 MCG TAB PO SCH (06:47)
[2023-02-19 08:24] LABS: Basophils % (A) 0 %; Eosinophils # (A) 0.4 k/uL (0-0.7); Eosinophils % (A) 5 %; HCT 52.2 % (39.0-53.0); HGB 16.9 gm/dL (13.0-17.5); Lymphocytes % (A) 22 %; MCH 29.9 pg (25.0-35.0); MCHC 32.3 g/dL (31.0-37.0); MCV 92.6 fL (80.0-100.0); Mean Platelet Volume 9.5; Monocytes # (A) 0.6 k/uL (0-1.0); Monocytes % (A) 6 %; Neutrophils % (A) 65 %; Platelet Count 200 k/uL (150-450); RBC 5.64 m/uL (4.30-5.90); WBC 9.1 k/uL (3.8-10.6)
[2023-02-19 08:43] LABS: ALT 18 U/L (4-49); African American GFR (CKD) 88 (>60 ml/min/1.73 sqM); Albumin 3.7 g/dL (3.5-5.0); Anion Gap 12 mmol/L; Blood Urea Nitrogen 27 mg/dL (9-20); Calcium 8.9 mg/dL (8.4-10.2); Carbon Dioxide 18 mmol/L (22-30); Chloride 108 mmol/L (98-107); Glucose 96 mg/dL (74-99); Non-African American GFR(CKD) 76 (>60 ml/min/1.73 sqM); Sodium 138 mmol/L (137-145); Total Bilirubin 0.6 mg/dL (0.2-1.3); Total Protein 6.7 g/dL (6.3-8.2)
[2023-02-19] MEDS: METOPROLOL TARTRATE 25 MG TAB PO SCH (08:45)
[2023-02-19] MEDS: APIXABAN 5 MG TAB PO SCH (08:45)
[2023-02-19 08:46] LABS: AST 28 U/L (17-59); Alkaline Phosphatase 84 U/L (38-126); Potassium 4.6 mmol/L (3.5-5.1)
[2023-02-19] MEDS: PANTOPRAZOLE 40 MG/10 ML VIAL IV SCH (08:46)
[2023-02-19 08:47] VITALS: RESP 17; TEMP 97.5
[2023-02-19] MEDS ORDERED: METOPROLOL TARTRATE 25 MG TAB PO STA (09:51)
[2023-02-19 11:43] VITALS: BP 128/86
[2023-02-19 12:03] VITALS: PULSE 98
--- NOTE | 2023-02-19 12:33 | P.DS ---
Providers Date of admission: 02/17/23 12:05 Expected date of discharge: 02/19/23 Attending physician: Gustavo Singh Consults: 02/15/23 16:46 Consult Physician Routine Consulting Provider: Tess Simmons Consult Reason/Comments: afib Do you want consulting provider notified?: Yes Primary care physician: [facility] Hospital Course: 72-year-old gentleman with past medical history significant for chronic atrial fibrillation, chronic systolic heart failure who presented to the ER after being sent in from his PCPs office for A. fib with RVR. Patient initially went to his PCP office for annual physical, patient had vital signs and EKG done there and was found to be in A. fib with RVR. Patient denied any palpitations. Patient denied any complaint of of shortness of breath. no complain of orthopnea and pnd. denied any nausea vomiting abdominal pain. Patient was sent to ER by PCP.Initial lab work done in the ER showed WBC 9.2, hemoglobin 17.5, platelet, 97, sodium 139 potassium 4.6, BUN 21, creatinine 0.87, troponin 0.012, TSH 0.753 EKG done in the ER heart rate 140, QRS 91, no ST segment elevation, no P waves seen, irregular in rhythm Chest x-ray done in the ER showed no acute cardiopulmonary process Patient admitted to medicine service 02/17. Patient seen and examined. Denies any chest Palpitation. No acute issues overnight. Vital signs stable 02/18. Patient seen and examined. Denies any shortness of breath, rate is controlled. No Palpitations. Denies any swelling of feet 02/19/23: Patient seen and evaluated bedside, heart rate better controlled with metoprolol, patient requesting discharge for follow-up appointment at 2 PM. Blood pressure within normal limits patient ambulated without any difficulty discharge home prescription for metoprolol provided PHYSICAL EXAMINATION: GENERAL: The patient is alert and oriented x3, not in any acute distress. Well developed, well nourished. HEENT: Pupils are round and equally reacting to light. EOMI. CARDIOVASCULAR: S1 and S2 present. Irregular, rate controlled PULMONARY: Chest is clear to auscultation, no wheezing or crackles. ABDOMEN: Soft, nontender, nondistended, normoactive bowel sounds. No palpable organomegaly. MUSCULOSKELETAL: No joint swelling or deformity. EXTREMITIES: No cyanosis, clubbing, or pedal edema. NEUROLOGICAL: Gross neurological examination did not reveal any focal deficits. SKIN: No rashes. Assessment: Assessment and plan A. fib with RVR Hypothyroidism cardiomyopathy Patient seen by cardiology, continue metoprolol ejection fraction noted to have EF of 35-40%. Patient appears euvolemic at this point Continue metoprolol, Eliquis outpatient follow-up with cardiology Current home medication regimen continued including Synthyroid, Arthur home in stable condition Patient Condition at Discharge: Fair Plan - Discharge Summary Discharge Rx Participant: No New Discharge Prescriptions: New Metoprolol Tartrate [Lopressor] 100 mg PO BID 30 Days #60 tab Continue Apixaban [Eliquis] 5 mg PO BID #60 tab Levothyroxine Sodium [Synthroid] 25 mcg PO SUTUWEFRSA Vit C/E/Zn/Coppr/Lutein/Zeaxan [Preservision Areds 2 Chew Tab] 1 tab PO BID Levothyroxine Sodium [Synthroid] 12.5 mcg PO MOTH Discharge Medication List Apixaban [Eliquis] 5 mg PO BID #60 tab 06/06/17 [Rx] Levothyroxine Sodium [Synthroid] 12.5 mcg PO MOTH 02/15/23 [History] Levothyroxine Sodium [Synthroid] 25 mcg PO SUTUWEFRSA 02/15/23 [History] Vit C/E/Zn/Coppr/Lutein/Zeaxan [Preservision Areds 2 Chew Tab] 1 tab PO BID 02/15/23 [History] Metoprolol Tartrate [Lopressor] 100 mg PO BID 30 Days #60 tab 02/19/23 [Rx] Follow up Appointment(s)/Referral(s): Herman Doss MD [Primary Care Provider] - 1-2 days Danish Smith DO [STAFF PHYSICIAN] - 02/23/23 1:45 pm (Appointment with MEL Pollard) Patient Instructions/Handouts: A-fib (Atrial Fibrillation) (DC) Discharge Disposition: HOME SELF-CARE
--- NOTE | 2023-02-19 13:54 | P.PN ---
Subjective Progress Note Date: 02/19/23 This is a 72-year-old male with a past medical history significant for congestive heart failure, hypertension, hyperlipidemia, atrial fibrillation, and previous cardioversion. Patient follows in the office with Dr. Smith. We have been asked to see the patient in consultation for atrial fibrillation. Patient examined at the bedside. Patient states he "nicky" felt like he was palpitations. He denies shortness of breath. He reports mild chest discomfort at night. He reports mild dizziness. He denies any lower extremity edema. Patient was found to be in afib with RVR. Patient was started on IV Cardizem which is currently infusing at 10mg/hr. Telemetry reveals A-fib with a heart rate around 120. EKG reveals atrial fibrillation with RVR Chest xray negative for acute process Laboratory data: WBC 11.62. Hemoglobin 15.9. Platelet count 163. Sodium 139. Potassium 4.6. BUN 21. Creatinine 0.87. Troponin negative 3. TSH 0.753. Current home cardiac medications include Eliquis 5mg BID Most recent echocardiogram obtained in November 2020 revealed ejection fraction 55-60%, mild TR, mild MR Cardiac catheterization history: Year unknown. However patient was found to have normal coronary arteries per cardiac catheterization with Dr. Jacobsen per office records Progress Note Date: 02/18/23 Progress note: Patient is doing well from cardiac vessel standpoint. He is rate controlled atrial fibrillation. He does not have significant volume overload. His echo showed an EF of 40-45%. 02/19 Patient is seen today in follow-up. Telemetry is atrial fibrillation with current rate in the 80s but upon review, heart rate has been labile between 87 and 131. Blood pressure 109/85, pulse ox 97%. CBC is within normal limits. Potassium 4.6, BUN 27 creatinine 0.99. Patient is been continued on metoprolol 75 mg twice daily and eliquis 5 mg twice daily. PHYSICAL EXAM: VITAL SIGNS: Reviewed. GENERAL: Well-developed in no acute distress. HEENT: Head is normocephalic. Pupils are equal, round. Sclerae anicteric. Mucous membranes of the mouth are moist. Neck supple. No JVD or thyromegaly LUNGS: Respirations even and unlabored. Lungs essentially clear to auscultation bilaterally. HEART: Tachycardic. Irregular rate and rhythm. S1 and S2 heard. ABDOMEN: Soft. Nondistended. Nontender. EXTREMITIES: Normal range of motion. No clubbing or cyanosis. Peripheral pulses intact. No lower extremity edema NEUROLOGIC: Awake and alert. Oriented x 3. ASSESSMENT: Paroxysmal atrial fibrillation with RVR HFmrEF, EF 40% History of cardioversion Hypertension Hyperlipidemia Chronic congestive heart failure with preserved ejection fraction, currently euvolemic Previous intolerance to metoprolol secondary to lightheadedness History of essential tremors PLAN: Increase metoprolol to 100 mg twice a day. Continue Eliquis 5 mg twice a day Patient is cleared for discharge from cardiology and may follow-up with Dr. Smith in 1-2 weeks. Outpatient follow-up for mildly reduced ejection fraction and ischemic evaluation Nurse practitioner note has been reviewed, I agree with the documented findings and plan of care. Patient was seen and examined. Objective - Vital Signs Vital signs: Vital Signs Temp 97.5 F L 02/19/23 08:43 Pulse 116 H 02/19/23 08:55 Resp 17 02/19/23 08:43 BP 109/85 02/19/23 08:43 Pulse Ox 97 02/19/23 08:43 FiO2 Intake & Output 02/18/23 02/19/23 02/19/23 18:59 06:59 18:59 Intake Total 1440 237 240 Balance 1440 237 240 Intake: Oral 1440 237 240 Other: Voiding Method Toilet Toilet Toilet # Voids 3 - Labs CBC & Chem 7: 02/19/23 07:36 02/19/23 07:36 Labs: Abnormal Lab Results - Last 24 Hours (Table) 02/19/23 Range/Units 07:36 Chloride 108 H (98-107) mmol/L Carbon Dioxide 18 L (22-30) mmol/L BUN 27 H (9-20) mg/dL
[2023-02-19] MEDS ORDERED: METOPROLOL TARTRATE 50 MG TAB PO SCH (21:00)
== END 2023-02-19 13:56 | disposition home or self-care (01) | DRG 309 ==
LOC: EC 14:12 → 6NMEDSUR 16:46 → 3SCARD 02-16 05:19 → OBSVTOIN 02-17 12:05
PROVIDERS: ADMIT Hospitalist; ATTEND Hospitalist
DX: I48.0 Paroxysmal atrial fibrillation (principal); I50.42 Chronic combined systolic (congestive) and diastolic (congestive) heart failure; I42.9 Cardiomyopathy, unspecified; I11.0 Hypertensive heart disease with heart failure; E78.5 Hyperlipidemia, unspecified; G25.0 Essential tremor; I08.1 Rheumatic disorders of both mitral and tricuspid valves; R00.0 Tachycardia, unspecified; Z79.01 Long term (current) use of anticoagulants; E03.9 Hypothyroidism, unspecified; Z79.890 Hormone replacement therapy; Z88.8 Allergy status to other drugs, medicaments and biological substances
CPT/HCPCS: 36415; 71045; 80053; 83605; 83735; 84100; 84443; 84484; 85025; 85610; 85730; 93005; 93270; 93306; 94760; 96361; 96365; 96375; 99291

== ENCOUNTER 2023-06-12 05:44 | Day surgery (SDC) | payer MEDICARE, BC ==
[2023-06-12] MEDS: SODIUM CHLORIDE 0.9% 1,000 ML IV ONE (06:06)
[2023-06-12 06:40] LABS: Basophils # (A) 0.1 k/uL (0-0.2); Basophils % (A) 1 %; Eosinophils # (A) 0.4 k/uL (0-0.7); Eosinophils % (A) 3 %; HCT 48.8 % (39.0-53.0); HGB 16.5 gm/dL (13.0-17.5); Lymphocytes % (A) 18 %; MCH 31.7 pg (25.0-35.0); MCHC 33.8 g/dL (31.0-37.0); MCV 93.7 fL (80.0-100.0); Mean Platelet Volume 8.3; Monocytes # (A) 0.6 k/uL (0-1.0); Monocytes % (A) 5 %; Neutrophils # (A) 8.2 k/uL (1.3-7.7); Neutrophils % (A) 72 %; Platelet Count 200 k/uL (150-450); RDW 13.2 % (11.5-15.5); WBC 11.4 k/uL (3.8-10.6)
[2023-06-12 06:51] LABS: ALT 17 U/L (4-49); African American GFR (CKD) >90 (>60 ml/min/1.73 sqM); Albumin 3.9 g/dL (3.5-5.0); Anion Gap 6 mmol/L; Blood Urea Nitrogen 25 mg/dL (9-20); Calcium 8.9 mg/dL (8.4-10.2); Carbon Dioxide 25 mmol/L (22-30); Chloride 110 mmol/L (98-107); Glucose 101 mg/dL (74-99); Non-African American GFR(CKD) 87 (>60 ml/min/1.73 sqM); Sodium 141 mmol/L (137-145); Total Bilirubin 0.7 mg/dL (0.2-1.3); Total Protein 6.9 g/dL (6.3-8.2)
[2023-06-12 06:52] LABS: AST 30 U/L (17-59); Alkaline Phosphatase 103 U/L (38-126); Potassium 4.5 mmol/L (3.5-5.1)
[2023-06-12] MEDS ORDERED: HEPARIN SODIUM,PORCINE 10,000 UNIT/ML 1 ML VIAL ONE (07:14)
[2023-06-12] MEDS ORDERED: fentaNYL (PF) 50 MCG/ML 2 ML AMP ONE (07:14)
[2023-06-12] MEDS ORDERED: HEPARIN SODIUM,PORCINE 5,000 UNIT/ML 1 ML VIAL ONE (07:14)
[2023-06-12] MEDS ORDERED: MIDAZOLAM 2 MG/2 ML VIAL ONE (07:14)
[2023-06-12] MEDS ORDERED: ETOMIDATE 2 MG/ML 10 ML VIAL ONE (07:14)
[2023-06-12] MEDS ORDERED: ROCURONIUM 10 MG/ML (5 ML VIAL) IV ONE (07:14)
[2023-06-12] MEDS ORDERED: LIDOCAINE 1% INJ 10MG/ML (20 ML MDV) ONE (07:14)
[2023-06-12] MEDS ORDERED: SUCCINYLCHOLINE CHLORIDE 200 MG/10 ML VIAL IV ONE (07:14)
[2023-06-12] MEDS ORDERED: PHENYLEPHRINE 10 MG/ML VIAL ONE (07:14)
[2023-06-12 07:46] LABS: T4, Free (Free Thyroxine) 1.28 ng/dL (0.78-2.19)
[2023-06-12] MEDS: HEPARIN SOD,PORK IN 0.45% NACL 25,000 UNIT in 0.45% NACL 1 250ML.BAG IV ONE (07:50)
[2023-06-12] MEDS: LIDOCAINE 1% INJ 10MG/ML (20 ML MDV) SQ ONE (07:58)
[2023-06-12] MEDS: IOPAMIDOL-370 100ML BTL INJ ONE (09:32)
--- NOTE | 2023-06-12 10:14 | P.HPCAR ---
History of Present Illness This is Dr. Schmitt dictating an H/P on this patient The patient was interviewed and examined IMPRESSION / ASSESSMENT: Persistent atrial fibrillation with RVR Associated atrial fibrillation related cardiomyopathy Recurrence of the amiodarone was discontinued Complains of tiredness and fatigue and symptoms of heart failure secondary to atrial fibrillation Hypertension PLAN: A-fib ablation with PVI and linear ablation of the left atrium HPI Patient continues to complain of tiredness and fatigue with heart failure symptoms despite rate control of atrial fibrillation He has a history of atrial fibrillation mediated cardiomyopathy that did respond and improve and function once sinus rhythm was restored briefly He denies any dizziness syncope chest pain Denies orthopnea PND ROS: No fever chills or rigors, no cough, phlegm or expectoration, no nausea, vomiting or diarrhea, no hematuria, dysuria, no musculoskeletal complaints, no strokes or seizures, no skin lesions. EXAMINATION: Afebrile, pulse rate 90-100 irregular blood pressure 126/69 mmHg Breath sounds are clear no rhonchi no crackles Heart sounds irregular no murmurs No lower extremity edema No JVD REVIEW OF LABS, ECG & MEDICAL DATA White count 11.4 thousand, hemoglobin 16.5, normal platelet count Normal electrolytes Normal liver function TSH 4.9 normal free T4 Physical Exam Vitals: Vital Signs Temp Pulse Resp BP Pulse Ox 06/12/23 06:18 97.6 F 100 16 126/69 93 L Intake and Output 06/11/23 06/12/23 06/12/23 22:59 06:59 14:59 Intake Total 728 Balance 728 Intake: IV 728 Other: Weight 101.6 kg Past Medical History Past Medical History: Atrial Fibrillation, Heart Failure, GERD/Reflux, Hypertension, Renal Disease, Thyroid Disorder Additional Past Medical History / Comment(s): past hx. kidney failure related to a medication-no further problems, benign tremors, see Dr Schmitt H & P History of Any Multi-Drug Resistant Organisms: None Reported Past Surgical History: No Surgical Hx Reported Additional Past Surgical History / Comment(s): cardioversion, colonoscopy Past Anesthesia/Blood Transfusion Reactions: No Reported Reaction Smoking Status: Never smoker - Past Family History Father Family Medical History: Unable to Obtain Mother Family Medical History: Unable to Obtain Physical Examination Vital Signs Temp Pulse Resp BP Pulse Ox 06/12/23 06:18 97.6 F 100 16 126/69 93 L Intake and Output 06/11/23 06/12/23 06/12/23 22:59 06:59 14:59 Intake Total 728 Balance 728 Intake: IV 728 Other: Weight 101.6 kg Results 06/12/23 06:06 06/12/23 06:06 Cardiac Enzymes 06/12/23 Range/Units 06:06 AST 30 (17-59) U/L CBC 06/12/23 Range/Units 06:06 WBC 11.4 H (3.8-10.6) k/uL RBC 5.20 (4.30-5.90) m/uL Hgb 16.5 (13.0-17.5) gm/dL Hct 48.8 (39.0-53.0) % Plt Count 200 (150-450) k/uL Comprehensive Metabolic Panel 06/12/23 Range/Units 06:06 Sodium 141 (137-145) mmol/L Potassium 4.5 (3.5-5.1) mmol/L Chloride 110 H (98-107) mmol/L Carbon Dioxide 25 (22-30) mmol/L BUN 25 H (9-20) mg/dL Creatinine 0.86 (0.66-1.25) mg/dL Glucose 101 H (74-99) mg/dL Calcium 8.9 (8.4-10.2) mg/dL AST 30 (17-59) U/L ALT 17 (4-49) U/L Alkaline Phosphatase 103 (38-126) U/L Total Protein 6.9 (6.3-8.2) g/dL Albumin 3.9 (3.5-5.0) g/dL Current Medications Generic Name Dose Route Start Last Admin Trade Name Freq PRN Reason Stop Dose Admin Sodium Chloride 1,000 mls @ 20 mls/hr 06/12/23 05:23 Saline 0.9% IV 07/12/23 05:24 .Q24H LUPIS Intake and Output 06/11/23 06/12/23 06/12/23 22:59 06:59 14:59 Intake Total 728 Balance 728 Intake: IV 728 Other: Weight 101.6 kg 06/12/23 06:06 06/12/23 06:06
--- NOTE | 2023-06-12 10:21 | P.EPPROC ---
- EP Procedure Note Electrophysiology Procedure Note: PROCEDURE A. fib ablation DIAGNOSIS Atrial fibrillation, symptomatic, refractory to therapy RESULT No left atrial appendage mass seen on intracardiac echo, dilated left atrium Smoke in the right atrium and left atrium Reduced LV systolic function during atrial fibrillation Large pulmonary veins, right middle pulmonary vein, common left-sided veins Successful A. fib ablation/pulmonary vein isolation of all veins using cryo- ablation Complete entrance block in all 4 veins confirmed Delayed appearance of a dissociated PVP on the anterior wall of the antrum of RS PV despite excellent temperatures during ablation Ablation of the left atrial septum Ablation of the left atrial roof No evidence for phrenic nerve injury Esophageal deflection YES Electrical cardioversion with a synchronized shock across the chest YES PROCEDURE DETAILS Written informed consent prior to procedure. Patient brought to the EP lab. General anesthesia given. Heparin administered. A city maintained above 300 seconds Both groins prepped and draped per protocol and venous sheaths placed. Esophagus intubated, circa catheter for temperature monitoring an endoscope for possible esophageal deflection. Phrenic nerve monitoring performed. Esophageal temperature monitoring performed. Esophageal deflection performed if circa catheter overlapping with the balloon or circa temperature less than 27.5C Intracardiac echocardiography performed. Pericardium evaluated. Left atrial appendage evaluated. Left atrium evaluated along with pulmonary veins Transseptal catheterization performed under fluoroscopic guidance and intracardiac echo guidance Cryoablation sheath exchanged, balloon catheter along with achieve catheter placed in the left atrium. Pulmonary veins isolated in the following sequence: Left superior pulmonary vein followed by left inferior pulmonary vein, followed by right inferior pulmonary vein and lastly right superior pulmonary vein. Phrenic nerve stimulation along with capture thresholds within the SVC and right superior pulmonary vein to identify the phrenic nerve proximity to the cryo- balloon. Pulmonary veins isolated and confirmed with entrance and exit block. Phrenic nerve integrity confirmed at the end of the procedure Ablation of the left atrial roof performed with sequential lesions from the left superior to the right superior pulmonary veins. Ablation of the electrograms confirmed Ablation of the left atrial septum performed with cannulation of the superior branch of the right inferior and subsequently the inferior branch of the right superior vein to achieve ablation of the posterior septum of the left atrium. Ablation of electrograms confirmed Electrical cardioversion performed for persistence of atrial fibrillation despite successful ablation. Diagnostic catheters for the high right atrium, His bundle, coronary sinus placed. LA and RA pressures recorded RA pressure: 11/02/13 LA pressure: 11/11/10 Diagnostic EP study with coronary sinus pacing and recording during sinus rhythm, post cardioversion Baseline measurements: Sinus cycle length 103 8 ms, KS interval 153 ms, QRS 140 ms and QT 384 ms AH 97 and HV 59 ms Venous sheaths were removed and hemostasis assured with a closure device. Patient extubated and transferred to recovery Increase procedural time During ablation multiple attempts had to be made to move the esophagus a safe distance of the from the pulmonary vein draining cryoablation, to avoid excessive thermal cooling of the esophagus This took extra time and effort to keep the esophagus a safe distance away from the cryoablation balloon. The right-sided veins are complex. There was a 6 right middle pulmonary vein that was separately isolated The right superior pulmonary vein was large and successful isolation was performed with excellent occlusion and around the cold temperatures A total of 4 minutes of ablation was performed, 2+2, since the temperatures were quite cold Despite that there was delayed appearance of an isolated PVP signal with complete entrance and exit block Ablation was performed with cannulation of the upper branch, later cannulation of the low branch of the right superior pulmonary vein However the dissociated PVP persisted. This appeared to be originating in the anterior wall of the antrum EXTR time involved with ablation of this right superior pulmonary vein The left-sided veins were: And multiple segmental cryoablation lesions were delivered for complete isolation which was successful PROCEDURES PERFORMED Diagnostic EP study CS pacing and recording Left and right transseptal catheterization Catheter the mapping of the tachycardia Intracardiac echocardiography Pulmonary vein isolation with transseptal and comprehensive EPS, 32207 Extended procedure duration Left atrial roof line, +[id number] Linear ablation, left atrium, +[id number] Electrical cardioversion with a synchronized shock across the chest 16485
[2023-06-12] MEDS ORDERED: ACETAMINOPHEN TAB 325 MG TAB PO PRN (10:24)
[2023-06-12] MEDS: ACETAMINOPHEN IV (For NPO) 1,000 MG/100 ML VIAL IVPB ONE (12:35)
[2023-06-12] MEDS: SODIUM CHLORIDE 0.9% 1,000 ML IV SCH (16:28)
[2023-06-12] MEDS: ACETAMINOPHEN IV (For NPO) 1,000 MG in EMPTY BAG 1 BAG IVPB ONE (16:30)
[2023-06-12] MEDS: APIXABAN 5 MG TAB PO SCH (21:20)
[2023-06-12] MEDS: METOPROLOL TARTRATE 50 MG TAB PO SCH (21:44)
[2023-06-13] MEDS: LEVOTHYROXINE 50 MCG TAB PO SCH (05:21)
[2023-06-13 07:29] VITALS: BP 121/71; PULSE 108; RESP 15; TEMP 98
--- NOTE | 2023-06-13 08:07 | P.DS ---
Providers Attending physician: Arturo Schmitt Primary care physician: [facility] Hospital Course: Patient is doing well Resting comfortably in bed Blood pressure normal heart rates are normal Heart sounds are normal no murmur no gallop no rub Rhythm is regular The patient has significant tremors and therefore his EKG has a lot of artifact that makes it look like atrial fibrillation but he is actually in sinus rhythm On examination his groins have healed well no hematoma no swelling Pulse rate is 100 Blood pressure 110/68 mmHg afebrile Breath sounds are clear He has very mild pleuritic chest discomfort but looks very comfortable no orthopnea PND Impression persistent atrial fibrillation that is failed treatment with amiodarone Status post ablation for A-fib with PVI and left atrial roof ablation Plan Reduce metoprolol to 50 mg twice daily Continue other medications Continue anticoagulation Follow-up with Dr. Smith in 1 week transfer to Patient Condition at Discharge: Stable Plan - Discharge Summary Discharge Rx Participant: No New Discharge Prescriptions: Continue RX: Apixaban [Eliquis] 5 mg PO BID #60 tab RX: Levothyroxine Sodium [Synthroid] 50 mcg PO SUTUWEFRSA RX: Vit C/E/Zn/Coppr/Lutein/Zeaxan [Preservision Areds 2 Chew Tab] 1 tab PO BID RX: Metoprolol Tartrate [Lopressor] 100 mg PO BID 30 Days #60 tab RX: Levothyroxine Sodium [Synthroid] 25 mcg PO MOTH Discharge Medication List RX: Apixaban [Eliquis] 5 mg PO BID #60 tab 06/06/17 [Rx] RX: Levothyroxine Sodium [Synthroid] 25 mcg PO MOTH 02/15/23 [History] RX: Levothyroxine Sodium [Synthroid] 50 mcg PO SUTUWEFRSA 02/15/23 [History] RX: Vit C/E/Zn/Coppr/Lutein/Zeaxan [Preservision Areds 2 Chew Tab] 1 tab PO BID 02/15/23 [History] RX: Metoprolol Tartrate [Lopressor] 100 mg PO BID 30 Days #60 tab 02/19/23 [Rx] Follow up Appointment(s)/Referral(s): Danish Smith DO [STAFF PHYSICIAN] - 1 Week Activity/Diet/Wound Care/Special Instructions: Post EP study - Ablation instructions 1. Keep access sites dry for 2 days. 2. No heavy lifting or straining for 2 days. 3. Avoid bending the hips repeatedly for 2 days. 4. You may go up and down stairs slowly Call if the following is noted 1. Bleeding, increasing swelling or pain at the access sites. 2. Increasing chest discomfort, especially upon taking a deep breath. 3. Increasing shortness of breath, at rest or with exertion. 4. Undue cough / phlegm 5. Difficulty or pain while swallowing. 6. Pain or change in color in the extremities. 7. Fever, chills, rigors. 8. Increasing headache or neurologic symptoms. 9. Dizziness, fainting, palpitations Discharge Disposition: HOME SELF-CARE
[2023-06-13] MEDS: METOPROLOL TARTRATE 50 MG TAB PO SCH (08:37)
[2023-06-14] MEDS ORDERED: LEVOTHYROXINE 25 MCG TAB PO SCH (06:30)
== END 2023-06-13 09:50 | disposition home or self-care (01) ==
LOC: CATHEP 05:44 → 6NMEDSUR 09:55 → CATHEP 06-13 09:50
PROVIDERS: ATTEND Internal Medicine Clinical Cardiac Electrophysiology
DX: I48.0 Paroxysmal atrial fibrillation (principal); I42.9 Cardiomyopathy, unspecified; I11.0 Hypertensive heart disease with heart failure; I50.9 Heart failure, unspecified; K21.9 Gastro-esophageal reflux disease without esophagitis; Z79.01 Long term (current) use of anticoagulants; Z79.899 Other long term (current) drug therapy
CPT/HCPCS: 93656; 93657; 86900; 86901; 84439; 80053; 84443; 85025; 86850; C1894 ×2; C1769 ×4; C1760; C1730 ×2; C1759; C1893; C1733; C1766; J2250; J0330; J1644 ×3; J2001; J3010; J0131; Q9967; J2371

== ENCOUNTER → 2023-08-08 | Day surgery (SDC) | payer MEDICARE, BC ==
[~2023-08-08] MED LIST changes: -HYDROmorphone 0.5 MG/0.5 ML SYRINGE IVP PRN; -LACTATED RINGERS 1,000 ML IV SCH; -LIDOCAINE 1% 20 ML VIAL (10MG/ML) FOR IV START INTRADERMA PRN; +SODIUM CHLORIDE 0.9% 1,000 ML IV SCH
[2023-08-08] MEDS: LACTATED RINGERS 1,000 ML IV ONE (06:34)
[2023-08-08 07:22] VITALS: BP 131/75; PULSE 74; RESP 18; TEMP 97
== END ==
LOC: OR 06:13
PROVIDERS: ATTEND Internal Medicine
DX: Z53.8 Procedure and treatment not carried out for other reasons (principal); I42.0 Dilated cardiomyopathy; I48.0 Paroxysmal atrial fibrillation; I11.0 Hypertensive heart disease with heart failure; I50.32 Chronic diastolic (congestive) heart failure; E78.5 Hyperlipidemia, unspecified; Z79.01 Long term (current) use of anticoagulants; Z79.899 Other long term (current) drug therapy

== ENCOUNTER 2024-02-27 19:07 | Emergency (ER) | payer MEDICARE, BC ==
[2024-02-27 19:15] VITALS: RESP 20
--- NOTE | 2024-02-27 19:32 | ED ---
General Adult HPI - General Chief complaint: Recheck/Abnormal Lab/Rx Stated complaint: high poatassium Time Seen by Provider: 02/27/24 19:16 Source: patient Mode of arrival: ambulatory Limitations: no limitations - History of Present Illness Initial comments: Dictation was produced using [employer] dictation software. please excuse any grammatical, word or spelling errors. Chief Complaint: 73-year-old male presents with abnormal outpatient lab History of Present Illness: Patient 73-year-old male he had blood drawn today. He was at his primary care physician's office for routine checkup. States he feels fine. He had blood work drawn and was notified just prior to arrival that his potassium level is high. Patient has no other complaints. The ROS documented in this emergency department record has been reviewed and confirmed by me. Those systems with pertinent positive or negative responses have been documented in the HPI. All other systems are other negative and/or noncontributory. - Related Data Home Medications Medication Instructions Recorded Confirmed Levothyroxine Sodium [Synthroid] 25 mcg PO MOTH 02/15/23 08/03/23 Levothyroxine Sodium [Synthroid] 50 mcg PO SUTUWEFRSA 02/15/23 08/03/23 Vit C/E/Zn/Coppr/Lutein/Zeaxan 1 tab PO BID 02/15/23 08/03/23 [Preservision Areds 2 Chew Tab] Amiodarone HCl [Pacerone] 200 mg PO BID 08/03/23 08/03/23 Previous Rx's Medication Instructions Recorded Apixaban [Eliquis] 5 mg PO BID #60 tab 06/06/17 Metoprolol Tartrate [Lopressor] 100 mg PO BID 30 Days #60 tab 02/19/23 Allergies Allergy/AdvReac Type Severity Reaction Status Date / Time furosemide [From Lasix] AdvReac caused Verified 02/27/24 19:13 kidney failure Review of Systems ROS Statement: Those systems with pertinent positive or pertinent negative responses have been documented in the HPI. ROS Other: All systems not noted in ROS Statement are negative. Past Medical History Past Medical History: Atrial Fibrillation, Heart Failure, GERD/Reflux, Hypertension, Renal Disease, Thyroid Disorder Additional Past Medical History / Comment(s): past hx. kidney failure related to a medication-no further problems, benign tremors, see Dr Schmitt H & P History of Any Multi-Drug Resistant Organisms: None Reported Past Surgical History: No Surgical Hx Reported Additional Past Surgical History / Comment(s): cardioversion, colonoscopy Past Anesthesia/Blood Transfusion Reactions: No Reported Reaction Past Psychological History: No Psychological Hx Reported Smoking Status: Never smoker - Past Family History Father Family Medical History: AFIB Mother History Unknown: Yes Family Medical History: Unable to Obtain Brother(s) Family Medical History: CVA/TIA Additional Family Medical History / Comment(s): age 47 General Exam - General Exam Comments Initial Comments: PHYSICAL EXAM: General Impression: Alert and oriented x3, not in acute distress HEENT: Normocephalic atraumatic, extra-ocular movements intact, pupils equal and reactive to light bilaterally, mucous membranes moist. Cardiovascular: Heart regular rate and rhythm Chest: Able to complete full sentences, no retractions, no tachypnea Abdomen: abdomen soft, non-tender, non-distended, no organomegaly Musculoskeletal: Pulses present and equal in all extremities, no peripheral edema Motor: no focal deficits noted Neurological: CN II-XII grossly intact, no focal motor or sensory deficits noted Skin: Intact with no visualized rashes Psych: Normal affect and mood Limitations: no limitations Course Vital Signs 02/27/24 19:13 Temperature 97.5 F L Pulse Rate 83 Respiratory 20 Rate Blood Pressure 104/71 O2 Sat by Pulse 95 Oximetry EKG Findings - EKG Comments: EKG Findings:: My EKG interpretation: Ventricular rate 79, sinus rhythm,. 02 22, QRS 101, QTc 398. No NM prolongation, no QTC prolongation, no ST or T-wave changes noted. Overall, this EKG is unremarkable Medical Decision Making - Medical Decision Making Was pt. sent in by a medical professional or institution (, PA, MACHINE P[employer]ER, urgent care, hospital, or retirement...) When possible be specific @ -Sent in by PCP Did you speak to anyone other than the patient for history (EMS, parent, family, police, friend...)? What history was obtained from this source @ -No Did you review nursing and triage notes (agree or disagree)? Why? @ -I reviewed and agree with nursing and triage notes Were old charts reviewed (outside hosp., previous admission, EMS record, old EKG, old radiological studies, urgent care reports/EKG's, retirement records)? Report findings @ -No old charts were reviewed Differential Diagnosis (chest pain, altered mental status, abdominal pain women, abdominal pain men, vaginal bleeding, musculoskeletal, weakness, fever, dyspnea, syncope, headache, dizziness, GI bleed, back pain, seizure, CVA, palpatations, mental health)? @ -Hyperkalemia, renal failure, acute get injury EKG interpreted by me (3pts min.). @ -See above X-rays interpreted by me (1pt min.). @ -None done CT interpreted by me (1pt min.). @ -None done U/S interpreted by me (1pt. min.). @ -None done What testing was considered but not performed or refused? (CT, X-rays, U/S, labs)? Why? @ -None What meds were considered but not given or refused? Why? @ -None Was smoking cessation discussed for >3mins.? @ -No Were there social determinants of health that impacted care today? How? (Homelessness, low income, unemployed, alcoholism, drug addiction, transportation, low edu. Level, literacy, decrease access to med. care, senior care, rehab)? @ -No Was there de-escalation of care discussed even if they declined (Discuss DNR or withdrawal of care, Hospice)? DNR status @ -No What co-morbidities impacted this encounter? (DM, HTN, Smoking, COPD, CAD, Cancer, CVA, ARF, Chemo, Hep., AIDS, mental health diagnosis, sleep apnea, morbid obesity)? @ -None Was patient admitted / discharged? Hospital course, mention meds given and route, prescriptions, significant lab abnormalities, going to OR and other pertinent info. @ -73-year-old male presents with abnormal outpatient lab. Blood was drawn after patient was seen for routine office visit. Patient has no complaints. EKG is unremarkable. Vital signs stable. Labs are unremarkable. Potassium is 4.3. Outpatient lab likely secondary to lab error. Patient discharged Did you discuss the management of the patient with other professionals (professionals i.e. , PA, MACHINE [employer] P[employer]ER, lab, RT, psych nurse, social director, instructional technology coordinator, teacher, bank secrecy act officer, bottle caser)? Give summary @ -No Was critical care preformed (if so, how long)? @ -No Undiagnosed new problem with uncertain prognosis? @ -No Drug Therapy requiring intensive monitoring for toxicity (Heparin, Nitro, Ins ulin, Cardizem)? @ -No Were any procedures done? @ -No Diagnosis/symptom? Acute, or Chronic, or Acute on Chronic? Uncomplicated (without systemic symptoms) or Complicated (systemic symptoms)? @ -Abnormal outpatient lab Side effects of treatment? @ -No Exacerbation, Progression, or Severe Exacerbation? @ -No Poses a threat to life or bodily function? How? (Chest pain, [place], [place], pneumonia, PE, COPD, DKA, ARF, appy, cholecystitis, CVA, Diverticulitis, Homicidal, Suicidal, threat to staff... and all critical care pts) @ -No - Lab Data Result diagrams: 02/27/24 19:26 02/27/24 19:26 Lab Results 02/27/24 02/27/24 Range/Units 19:26 19:26 WBC 9.8 (3.8-10.6) k/uL RBC 5.24 (4.30-5.90) m/uL Hgb 16.0 (13.0-17.5) gm/dL Hct 49.3 (39.0-53.0) % MCV 94.1 (80.0-100.0) fL MCH 30.6 (25.0-35.0) pg MCHC 32.5 (31.0-37.0) g/dL RDW 13.1 (11.5-15.5) % Plt Count 222 (150-450) k/uL MPV 7.9 Neutrophils % 68 % Lymphocytes % 19 % Monocytes % 6 % Eosinophils % 3 % Basophils % 1 % Neutrophils # 6.7 (1.3-7.7) k/uL Lymphocytes # 1.9 (1.0-4.8) k/uL Monocytes # 0.6 (0-1.0) k/uL Eosinophils # 0.3 (0-0.7) k/uL Basophils # 0.1 (0-0.2) k/uL Sodium 141 (137-145) mmol/L Potassium 4.3 (3.5-5.1) mmol/L Chloride 112 H (98-107) mmol/L Carbon Dioxide 23 (22-30) mmol/L Anion Gap 6 mmol/L BUN 32 H (9-20) mg/dL Creatinine 1.26 H (0.66-1.25) mg/dL Est GFR (CKD-EPI)AfAm 65 (>60 ml/min/1.73 sqM) Est GFR (CKD-EPI)NonAf 56 (>60 ml/min/1.73 sqM) Glucose 113 H (74-99) mg/dL Calcium 8.8 (8.4-10.2) mg/dL Disposition Clinical Impression: Abnormal laboratory test Disposition: HOME SELF-CARE Condition: Good Is patient prescribed a controlled substance at d/c from ED?: No Referrals: Herman Doss MD [Primary Care Provider] - 1-2 days Time of Disposition: 19:55
[2024-02-27 19:48] LABS: Basophils # (A) 0.1 k/uL (0-0.2); Basophils % (A) 1 %; Eosinophils # (A) 0.3 k/uL (0-0.7); Eosinophils % (A) 3 %; HCT 49.3 % (39.0-53.0); Lymphocytes # (A) 1.9 k/uL (1.0-4.8); Lymphocytes % (A) 19 %; MCH 30.6 pg (25.0-35.0); MCHC 32.5 g/dL (31.0-37.0); MCV 94.1 fL (80.0-100.0); Mean Platelet Volume 7.9; Monocytes # (A) 0.6 k/uL (0-1.0); Monocytes % (A) 6 %; Neutrophils # (A) 6.7 k/uL (1.3-7.7); Neutrophils % (A) 68 %; Platelet Count 222 k/uL (150-450); RBC 5.24 m/uL (4.30-5.90); RDW 13.1 % (11.5-15.5); WBC 9.8 k/uL (3.8-10.6)
[2024-02-27 19:52] LABS: African American GFR (CKD) 65 (>60 ml/min/1.73 sqM); Anion Gap 6 mmol/L; Blood Urea Nitrogen 32 mg/dL (9-20); Calcium 8.8 mg/dL (8.4-10.2); Carbon Dioxide 23 mmol/L (22-30); Chloride 112 mmol/L (98-107); Glucose 113 mg/dL (74-99); Non-African American GFR(CKD) 56 (>60 ml/min/1.73 sqM); Potassium 4.3 mmol/L (3.5-5.1); Sodium 141 mmol/L (137-145)
[2024-02-27 20:08] VITALS: BP 109/87; PULSE 71; TEMP 97.6
== END 2024-02-27 20:07 | disposition home or self-care (01) ==
LOC: EC 19:07
CPT/HCPCS: 36415; 80048; 85025; 93005; 99285